=== PATIENT | female | born 1960 | race Caucasian/White ===

== ENCOUNTER 2020-01-21 10:19 | Outpatient (REF) | payer OTHER, SELFPAY ==
[2020-01-21 11:57] LABS: Hematocrit 43.2 % (37-47); Hemoglobin 13.8 g/dl (12.0-16.0); Mean Corpuscular HGB Conc 31.9 g/dl (31.0-35.0); Mean Corpuscular Hemoglobin 28.2 pg (27.0-33.0); Mean Corpuscular Volume 88.2 fL (80-98); Mean Platelet Volume 10.2 fL (9.4-12.3); Platelet Count 375 X10*3/uL (160-400); Red Cell Distribution Width 12.3 % (11.0-16.0); White Blood Count 7.3 X10*3/uL (4.8-10.8)
[2020-01-21 12:35] LABS: Alanine Aminotransferase 25 U/L (0-31); Albumin Level 4.3 g/dL (3.5-5.0); Alkaline Phosphatase 85 U/L (39-117); Anion Gap 12 (12-20); Aspartate Amino Transferase 18 U/L (5-31); Bilirubin Total 0.6 mg/dL (0.0-1.0); Blood Urea Nitrogen 15 mg/dL (9-16); Calcium 8.6 mg/dL (8.4-10.2); Carbon Dioxide 26 mmol/L (22-29); Chloride 106 mmol/L (96-108); Cholesterol 260 mg/dL; Estimated Glomerular Filt Rate > 60; Glucose Fasting 87 mg/dL (60-99); HDL Cholesterol 54 mg/dL; LDL Cholesterol Calculated 186 mg/dl; Potassium 4.4 mmol/l (3.3-5.1); Sodium 140 mmol/L (135-145); Total Protein 6.8 g/dL (6.5-8.0); Triglycerides 102 mg/dL
[2020-01-21 12:57] LABS: Uric Acid 4.7 mg/dL (2.4-5.7)
[2020-01-21 13:05] LABS: Erythrocyte Sedimentation Rate 14 MM/HR (0-20)
== END 2020-01-21 10:20 | disposition home or self-care (01) ==
LOC: HO.LAB 10:19
PROVIDERS: Visit Provider Internal Medicine
DX: M72.2 Plantar fascial fibromatosis (principal); E78.2 Mixed hyperlipidemia
CPT/HCPCS: 36415; 80053; 80061; 84550; 85027; 85652

== ENCOUNTER 2021-05-16 10:10 | Outpatient (REF) | payer OTHER, SELFPAY ==
[2021-05-16 11:16] LABS: Appearance Urine CLEAR; Color Urine YELLOW; Glucose Urine UA NEG (NEG); Leukocyte Esterase Urine NEG (NEG); Nitrite Urine NEG (NEG); Specific Gravity - Urine 1.025 (1.005-1.025); Urine Blood NEG (NEG); Urine Ketones NEG (NEG); Urine Protein NEG (NEG-TRACE)
[2021-05-16 11:17] LABS: Hematocrit 44.3 % (37.0-47.0); Hemoglobin 14.1 g/dl (12.0-16.0); Mean Corpuscular HGB Conc 31.8 g/dl (31.0-35.0); Mean Corpuscular Hemoglobin 27.8 pg (27.0-33.0); Mean Corpuscular Volume 87.4 fL (80.0-98.0); Platelet Count 357 X10*3/uL (160-400); Red Blood Count 5.07 X10*6/uL (4.20-5.50); Red Cell Distribution Width 12.8 % (11.0-16.0); White Blood Count 7.6 X10*3/uL (4.8-10.8)
[2021-05-16 12:02] LABS: TSH reflex Free T4 0.99 uIU/mL (0.32-4.0); Vitamin D 25-OH Total 58.4 ng/mL (>30)
[2021-05-16 12:07] LABS: Alanine Aminotransferase 46 U/L (0-31); Albumin Level 4.2 g/dL (3.5-5.0); Alkaline Phosphatase 83 U/L (39-117); Anion Gap 13 (12-20); Aspartate Amino Transferase 23 U/L (5-31); Bilirubin Total 0.6 mg/dL (0.0-1.0); Blood Urea Nitrogen 15 mg/dL (9-16); Calcium 9.5 mg/dL (8.4-10.2); Carbon Dioxide 27 mmol/L (22-29); Chloride 105 mmol/L (96-108); Cholesterol 266 mg/dL; Estimated Glomerular Filt Rate > 60; Glucose Fasting 90 mg/dL (60-99); HDL Cholesterol 55 mg/dL; LDL Cholesterol Calculated 188 mg/dl; Potassium 4.3 mmol/L (3.3-5.1); Sodium 141 mmol/L (135-145); Total Protein 6.8 g/dL (6.5-8.0); Triglycerides 115 mg/dL
== END 2021-05-16 10:11 | disposition home or self-care (01) ==
LOC: HO.HMGCLDS 10:10
PROVIDERS: Visit Provider Internal Medicine
DX: Z00.00 Encounter for general adult medical examination without abnormal findings (principal); E55.9 Vitamin D deficiency, unspecified; E78.5 Hyperlipidemia, unspecified; R30.0 Dysuria
CPT/HCPCS: 36415; 80053; 80061; 81003; 82306; 84443; 85027

== ENCOUNTER → 2021-08-22 08:39 | Outpatient (BNVA) | payer OTHER, SELFPAY | PROVIDERS: PCP Internal Medicine; Visit Provider Nurse Practitioner Family | DX: Z13.89 Encounter for screening for other disorder (principal) ==

== ENCOUNTER 2021-11-23 08:55 | Day surgery (SDC) | payer OTHER, SELFPAY ==
[2021-11-19 13:10] VITALS: BMI 36.1
--- NOTE | 2021-11-22 12:29 | P.CONAN_ITS ---
Documented by User: Rayna Massey NP 11/22/21 12:30 HPI - Anesthesia Eval Consult details Narrative: 61yo F for Colonoscopy [facility] Active Problems Active Problems: All Active Problems (Updated 05/15/21 @ 13:44 by Elida Archibald MD) Dysuria (Acute) Vitamin D deficiency (Acute) Hyperlipidemia (Acute) Normal pelvic exam (Acute) Mammogram declined (Acute) Annual physical exam (Acute) Past Medical History Medical History Annual physical exam Dysuria Hyperlipidemia Mammogram declined Normal pelvic exam Vitamin D deficiency Family History Family History (Updated 08/22/21 @ 08:44 by MARIANNE Barr) Sister IBS (irritable bowel syndrome) Surgical History Surgical History History of cone biopsy of uterine cervix Hx of colonoscopy Hx of hernia repair Hx of tonsillectomy Social History Social History Housing: House Patient Tobacco Use Status: Former Tobacco user Quit Date: 40 yrs ago e-Cigarette/Vaping Use: Never Used Use of substances other than those prescribed or required for medical reasons: No Are you DNR?: No Advance Directives: No Advance Directives Information Provided: Yes Current occupational status: employed Meds Allergies Allergy/AdvReac Type Severity Reaction Status Date / Time Latex, Natural Rubber Allergy Mild rash Verified 11/23/21 09:08 Home Medications Medication Instructions Recorded Confirmed Last Taken Type vitamin D3-vitamin K2 PO 11/23/21 Unknown History Exam Exam Date and Time: November 22, 2021 1229 Height,Weight and Vital Signs: Height 5 ft Weight 83.915 kg Assessment and Plan Assessment Anesthesia Assessment: Chart Reviewed Documented by User: Rachael Fofana MD 11/23/21 09:20 [facility] Past Medical History Medical History Annual physical exam Dysuria Hyperlipidemia Mammogram declined Normal pelvic exam Vitamin D deficiency Family History Family History (Updated 08/22/21 @ 08:44 by MARIANNE Barr) Sister IBS (irritable bowel syndrome) Family history of problems with anesthesia: No Surgical History Surgical History History of cone biopsy of uterine cervix Hx of colonoscopy Hx of hernia repair Hx of tonsillectomy History of Problems with Anesthesia: No Social History Social History Housing: House Patient Tobacco Use Status: Former Tobacco user Quit Date: 40 yrs ago e-Cigarette/Vaping Use: Never Used Use of substances other than those prescribed or required for medical reasons: No Are you DNR?: No Advance Directives: No Advance Directives Information Provided: Yes Current occupational status: employed Meds Allergies Allergy/AdvReac Type Severity Reaction Status Date / Time Latex, Natural Rubber Allergy Mild rash Verified 11/23/21 09:08 Home Medications Medication Instructions Recorded Confirmed Last Taken Type vitamin D3-vitamin K2 PO 11/23/21 Unknown History Exam Airway Mallampati Class: II (Cap top front) TM Dist: >3cm Neck ROM: Full Heart: rrr Lungs: cta Assessment and Plan Assessment Anesthesia Assessment: Anesthesia Plan Discussed and Chart Reviewed Final Anesthetic Review Family History of Problems with Anesthesia: No History of Problems with Anesthesia: No NPO: Yes ASA Class: II Final Preanesthetic Review: No Changes in Pt Med Stat, Meds/Allgs Chart Reviewed and Consent Obtained/Reviewed Patient Risk: Intermediate Procedure Risk: Intermediate Anesthetic Plan Anesthetic Plan: MAC: Disposition: Standard PACU
--- NOTE | 2021-11-23 09:06 | MHC.SHP ---
Pre-Procedural Eval Section A Date of Service: 11/23/21 Section B Chief Complaint: screening Relevant Family History (Specify if Yes): No Relevant Social History: None Present Medications: see Short Stay Collaborative assessment Medical History: Significant History (Dysuria Hyperlipidemia Mammogram declined Normal pelvic exam Vitamin D deficiency) History of Previous Operations: Relevant previous surgery/procedure and date(s) (History of cone biopsy of uterine cervix Hx of colonoscopy Hx of hernia repair Hx of tonsillectomy) Allergies: Allergies Allergy/AdvReac Type Severity Reaction Status Date / Time Latex, Natural Rubber Allergy Mild rash Verified 08/22/21 08:43 Review of Systems Sugical H&P ROS: Negative: Constitution, Cardiovascular, Respiratory, Neurological, Psychiatric, Hem-Onc, Allergic/Immunologic, Genitourinary, Musculoskeletal, Integumentary, Endocrine and Eyes/Ears/Nose/Throat and Yes, Specify: Gastrointestinal (dysphagia, early satiety and nausea) Exam Surgical H&P Exam: Normal: HEENT, Normal: Heart, Normal: Lungs, Normal: Extremities, Normal: Abdomen, Normal: Skin and Normal: Neurological Plan Diagnosis/Plan: Unchanged I have reviewed the history and physical and performed a pertinent physical examination on my patient. No changes have occurred unless specified. Patient will need EGD at future date due to dysphagia to solids and early satiety.
[2021-11-23 09:24] VITALS: BP 142/64; PULSE 78; RESP 15; TEMP 36.5; O2SAT 96
[2021-11-23] MEDS: Lactated Ringers 1,000 ML 100 ML IVCONT (09:25)
--- NOTE | 2021-11-23 09:56 | W.PM.OPN ---
Operative Note Operative Note Date of Service: 11/23/21 Narrative: Operative Information Procedure Description: Colonoscopy Indication: screening Anesthesia: MAC COLONOSCOPY Instrument: Olympus variable stiffness pediatric scope 190L Colonoscopy Monitoring: Vital signs and clinical assessment, continuous EKG monitoring, Pulse oximetry, Carbon Dioxide monitoring and blood pressure monitoring were done throughout the procedure. Colon withdrawal time was 12 minutes. Procedure: The patient was placed in the left lateral decubitis position and pre-procedure medications were administered. After a digital rectal examination of the ano-rectum, the video colonoscope was inserted into the rectum and advanced through the colon to the cecum/TI. The colonoscope was slowly withdrawn in a retrograde panoramic fashion and the colon mucosa was carefully examined including a retroflexed view of the rectum. Findings and interventions are described below. Procedure Difficulty: easy Findings: Terminal Ileum-normal Cecum:normal Ascending Colon: normal Transverse Colon -normal Descending Colon: 6-7 mm sessile polyp removed with cold forceps Sigmoid Colon: mild to moderate diverticulosis Rectum: Retroflexion with small internal hemorrhoids, grade I Anorectum - normal Colon preparation: [place] Bowel Preparation Scale Right colon; 3 Transverse colon: 3 Left colon; 3 (0 = Unprepared colon segment with mucosa not seen due to solid stool that cannot be cleared. 1 = Portion of mucosa of the colon segment seen, but other areas of the colon segment not well seen due to staining, residual stool and/or opaque liquid. 2 = Minor amount of residual staining, small fragments of stool and/or opaque liquid, but mucosa of colon segment seen well. 3 = Entire mucosa of colon segment seen well with no residual staining, small fragments of stool or opaque liquid) Impression and Post Procedure Diagnosis: polyp internal hemorrhoids diverticular disease Plan: High fiber diet leaflet Avoid straining at stool, epsom salts and sitz bath, anusol supps or cream Repeat Colonoscopy in 5 years due to polyp removed today or earlier if clinically indicated she will need EGD due to dysphagia, and early satiety. Above findings were reviewed with the patient and relevant handouts were provided if indicated.
[2021-11-23 10:00] VITALS: BP 93/55; PULSE 70; RESP 16; TEMP 36.7; O2SAT 95
[2021-11-23 10:15] VITALS: BP 106/63; PULSE 65; RESP 16; O2SAT 96
[2021-11-23 10:30] VITALS: BP 114/67; PULSE 59; RESP 17; TEMP 36.7; O2SAT 97
== END 2021-11-23 10:40 | disposition home or self-care (01) ==
PROVIDERS: PCP Internal Medicine; Visit Provider Internal Medicine Gastroenterology
PROC: 0DJD8ZZ Inspection of Lower Intestinal Tract, Via Natural or Artificial Opening Endoscopic (ICD-10-PCS; CPT 45378; principal; 2021-11-23 10:10)
DX: Z12.11 Encounter for screening for malignant neoplasm of colon (principal); D12.4 Benign neoplasm of descending colon; K57.30 Diverticulosis of large intestine without perforation or abscess without bleeding; R68.81 Early satiety; K64.0 First degree hemorrhoids; K76.0 Fatty (change of) liver, not elsewhere classified; E78.5 Hyperlipidemia, unspecified; E55.9 Vitamin D deficiency, unspecified; R30.0 Dysuria; R14.0 Abdominal distension (gaseous); Z91.040 Latex allergy status; Z87.891 Personal history of nicotine dependence
CPT/HCPCS: 45380; 88305

== ENCOUNTER 2022-06-19 11:05 | Day surgery (SDC) | payer OTHER, SELFPAY ==
[2022-05-01 11:05] VITALS: BMI 35.2
--- NOTE | 2022-06-18 12:55 | HO.ANESPROP2 ---
Documented by User: Rayna Massey NP 06/18/22 12:55 HPI - Anesthesia Eval Consult details Narrative: 61yo F for Upper Endoscopy s/p colo 11/2021 with MAC [facility] Active Problems Active Problems: All Active Problems (Updated 12/07/21 @ 19:47 by Charisse Mendez, [facility]) Tubular adenoma (Acute) Dysuria (Acute) Vitamin D deficiency (Acute) Hyperlipidemia (Acute) Normal pelvic exam (Acute) Mammogram declined (Acute) Annual physical exam (Acute) Past Medical History Medical History Annual physical exam Dysuria Hyperlipidemia Mammogram declined Normal pelvic exam Tubular adenoma Vitamin D deficiency Family History Family History Sister IBS (irritable bowel syndrome) Family history of problems with anesthesia: No Surgical History Surgical History History of cone biopsy of uterine cervix Hx of colonoscopy Hx of hernia repair Hx of tonsillectomy History of Problems with Anesthesia: No Social History Social History Housing: House Patient Tobacco Use Status: Former Tobacco user Quit Date: 2020 Tobacco use type: Cigarette e-Cigarette/Vaping Use: Never Used Use of substances other than those prescribed or required for medical reasons: No Have you been hit, kicked, punched, or otherwise hurt by someone within the past year? If so, by whom?: No Are you DNR?: No Advance Directives: No Advance Directives Information Provided: Yes (brochure mailed) Advance Directives on File: No Recently lost weight without trying: No Eating poorly because of decreased appetite: No Nutrition Risks: No Nutritional Risk Current occupational status: employed Meds Allergies Allergy/AdvReac Type Severity Reaction Status Date / Time Latex, Natural Rubber Allergy Mild rash Verified 12/07/21 13:12 Home Medications Medication Instructions Recorded Confirmed Last Taken Type vitamin D3-vitamin K2 1 cap PO DAILY 11/23/21 06/19/22 06/18/22 History Exam Exam Date and Time: June 18, 2022 1255 Height,Weight and Vital Signs: Height 5 ft Weight 81.647 kg Assessment and Plan Assessment Anesthesia Assessment: Chart Reviewed Final Anesthetic Review Family History of Problems with Anesthesia: No History of Problems with Anesthesia: No Documented by User: Rayray Santacruz MD 06/19/22 12:46 [facility] Past Medical History Medical History Annual physical exam Dysuria Hyperlipidemia Mammogram declined Normal pelvic exam Tubular adenoma Vitamin D deficiency Family History Family History Sister IBS (irritable bowel syndrome) Surgical History Surgical History History of cone biopsy of uterine cervix Hx of colonoscopy Hx of hernia repair Hx of tonsillectomy Social History Social History Housing: House Patient Tobacco Use Status: Former Tobacco user Quit Date: 2020 Tobacco use type: Cigarette e-Cigarette/Vaping Use: Never Used Use of substances other than those prescribed or required for medical reasons: No Have you been hit, kicked, punched, or otherwise hurt by someone within the past year? If so, by whom?: No Are you DNR?: No Advance Directives: No Advance Directives Information Provided: Yes (brochure mailed) Advance Directives on File: No Recently lost weight without trying: No Eating poorly because of decreased appetite: No Nutrition Risks: No Nutritional Risk Current occupational status: employed Meds Allergies Allergy/AdvReac Type Severity Reaction Status Date / Time Latex, Natural Rubber Allergy Mild rash Verified 12/07/21 13:12 Home Medications Medication Instructions Recorded Confirmed Last Taken Type vitamin D3-vitamin K2 1 cap PO DAILY 11/23/21 06/19/22 06/18/22 History Exam Airway Mallampati Class: I TM Dist: <=3cm Neck ROM: Full Heart: ok Lungs: ok Assessment and Plan Assessment Anesthesia Assessment: Anesthesia Plan Discussed Final Anesthetic Review NPO: Yes ASA Class: II Final Preanesthetic Review: No Changes in Pt Med Stat, Meds/Allgs Chart Reviewed, Consent Obtained/Reviewed and Anes Risks/Benef Reviewed Patient Risk: Low Procedure Risk: Intermediate Anesthetic Plan Anesthetic Plan: MAC: and Agree w/ Assess. and Plan Disposition: Standard PACU
[2022-06-19 11:11] VITALS: BMI 35.5
[2022-06-19 11:15] VITALS: BMI 35.5
[2022-06-19 11:39] VITALS: BP 122/69; PULSE 69; RESP 16; TEMP 36.9; O2SAT 97
[2022-06-19] MEDS: Lactated Ringers 1,000 ML 100 ML IVCONT (11:41)
--- NOTE | 2022-06-19 11:58 | MHC.SHP ---
Pre-Procedural Eval Section A Date of Service: 06/19/22 Section B Chief Complaint: Dysphagia, Relevant Family History (Specify if Yes): No Relevant Social History: None Present Medications: see Short Stay Collaborative assessment Medical History: Significant History (Dysuria Hyperlipidemia Mammogram declined Normal pelvic exam Tubular adenoma Vitamin D deficiency) History of Previous Operations: Relevant previous surgery/procedure and date(s) (History of cone biopsy of uterine cervix Hx of colonoscopy Hx of hernia repair Hx of tonsillectomy) Allergies: Allergies Allergy/AdvReac Type Severity Reaction Status Date / Time Latex, Natural Rubber Allergy Mild rash Verified 12/07/21 13:12 Review of Systems Sugical H&P ROS: Negative: Constitution, Cardiovascular, Respiratory, Neurological, Psychiatric, Hem-Onc, Allergic/Immunologic, Gastrointestinal, Genitourinary, Musculoskeletal, Integumentary, Endocrine and Eyes/Ears/Nose/Throat Exam Surgical H&P Exam: Normal: HEENT, Normal: Heart, Normal: Lungs, Normal: Extremities, Normal: Abdomen, Normal: Skin and Normal: Neurological Plan Diagnosis/Plan: Unchanged I have reviewed the history and physical and performed a pertinent physical examination on my patient. No changes have occurred unless specified. Time Spent With Patient Time: Total time managing care of this patient today ____ minutes.
--- NOTE | 2022-06-19 12:51 | W.PM.OPN ---
Operative Note Operative Note Date of Service: 06/19/22 Narrative: Procedure Description: EGD Indication: dysphagia Anesthesia: MAC FLEXIBLE TRANSORAL UPPER GASTROINTESTINAL ENDOSCOPY UPPER ENDOSCOPY Consent: Indications for the procedure and potential complications of bleeding, perforation, reaction to medications and missed diagnosis were discussed with the patient and informed consent was obtained. Instrument: Olympus GIF H 190 J mid size upper endoscope Monitoring: Vital signs and clinical assessment, continuous EKG monitoring, Pulse oximetry, Carbon Dioxide monitoring and blood pressure monitoring were done throughout the procedure. Procedure: The patient was placed in the left lateral decubitis position and pre-procedure medications were administered and a bite block was placed. The endoscope was inserted into the mouth and advanced under direct vision to the third part of duodenum. A careful inspection was made as the upper endoscope was withdrawn including a retroflexed examination of the proximal stomach; Findings and interventions are described below. Findings: Larynx:normal Esophagus: GE junction at 33 cm, diaphragm hiatus at 35 cm, consistent with 2 cm sliding hiatal hernia. Bogginess, erythema and congestion noted at GEJ with schatzki ring. Dilated with balloon at UES and LES to 19 mm with heme and superficial tears noted both areas. Bx taken from GEJ, distal and proximal esophagus Stomach: Patchy gastric erythema. Biopsies were obtained. Grade 2 flap valve on retroflexed examination of the cardia. Duodenum: Bulbar duodenitis -bx taken Intervention: Biopsies as noted above, balloon dilation Impression/Findings: hiatal hernia schatzki ring esophagitis esophageal strictures gastritis duodenitis PLAN: magic mouthwash prn for 1 week should consider PPI diet as tolerated today avoid excessively cold or hot foods/drinks
[2022-06-19 13:15] VITALS: BP 101/54; PULSE 75; RESP 14; TEMP 36.3; O2SAT 91
[2022-06-19] MEDS: Mag&Al/Sim/Diphenhyd/Lidocaine 10 ML ORAL.SUSP PO (13:26)
[2022-06-19] MEDS: Acetaminophen 325 MG TABLET 650 MG PO (13:29)
[2022-06-19 13:32] VITALS: BP 127/67; PULSE 72; RESP 16; O2SAT 98
[2022-06-19 13:47] VITALS: BP 131/68; PULSE 73; RESP 16; TEMP 36.3; O2SAT 96
== END 2022-06-19 14:27 | disposition home or self-care (01) ==
PROVIDERS: PCP Internal Medicine; Visit Provider Internal Medicine Gastroenterology
PROC: 0DJ08ZZ Inspection of Upper Intestinal Tract, Via Natural or Artificial Opening Endoscopic (ICD-10-PCS; CPT 43235; principal; 2022-06-19 12:40)
DX: R13.10 Dysphagia, unspecified (principal); K22.2 Esophageal obstruction; K29.50 Unspecified chronic gastritis without bleeding; K29.80 Duodenitis without bleeding; K20.80 Other esophagitis without bleeding; K44.9 Diaphragmatic hernia without obstruction or gangrene; E78.5 Hyperlipidemia, unspecified; E55.9 Vitamin D deficiency, unspecified; Z79.899 Other long term (current) drug therapy; Z91.040 Latex allergy status; Z87.891 Personal history of nicotine dependence
CPT/HCPCS: 43249; 43239; 88305; 88342; C1726; J3010

== ENCOUNTER → 2022-07-15 16:07 | Outpatient (BNVA) | payer OTHER, SELFPAY | PROVIDERS: PCP Internal Medicine; Visit Provider Nurse Practitioner Family | DX: Z13.89 Encounter for screening for other disorder (principal) ==

== ENCOUNTER 2022-10-07 15:00 | Outpatient (AMB) | payer OTHER, SELFPAY ==
[2022-10-07 15:23] VITALS: BP 114/58; PULSE 74; BMI 33.2
--- NOTE | 2022-10-07 15:23 | MHC.OFFVIS ---
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 Distal and proximal esophagus no inflammation. No H pylori found. Patient was recommended to start using PPI. We will start her on low-dose pantoprazole. Patient will try to avoid dietary triggers. We will try that for 3 months and we will stop the medication then. Patient was instructed to avoid NSAIDs. Patient was instructed not to lay done after meals. Staying upright for minimal 3 hours after meals discussed with patient. Dysphagia Patient no longer has dysphagia. Schatzki ring dilation performed successfully. Patient denies any dysphagia at this time. IBS (irritable bowel syndrome) Occasional postprandial abdominal bloating. Discussed with patient avoiding dietary triggers. Patient has low FODMAP diet recommendations at home. Patient will try MiraLax or senna tea to help her empty her bowels completely. Patient was also encouraged fluid intake and activity to promote better bowel motility. Plan Medications New pantoprazole 20 mg PO DAILY 90 tabs 0RF K21.9, R13.10 polyethylene glycol 3350 (Miralax) 17 grams PO DAILY 510 grams 2RF Discontinued omeprazole Discontinued Reason: Doctor's Order 20 mg PO DAILY 30 caps 2RF K21.9 TODAY'S VISIT Patient is here today for follow-up. Patient reports that since the last time have seen her she has been feeling better. Stopped taking pantoprazole few weeks ago. Patient states that she changed her diet and is no longer eating food that is aggravating her. Patient stopped milk products. Patient also is doing intermittent fasting with the last meal at 20:00 and 1st meal at 08:00. Patient denies any nausea or vomiting. Denies any dyspepsia, dysphagia or odynophagia. Patient last almost 15 lb. Patient states that she has been doing well otherwise denies any GI concerning symptoms. [facility] Medical History Annual physical exam Dysuria Hyperlipidemia Mammogram declined Normal pelvic exam Tubular adenoma Vitamin D deficiency Surgical History History of cone biopsy of uterine cervix History of esophagogastroduodenoscopy (EGD) Hx of colonoscopy Hx of hernia repair Hx of tonsillectomy Family History Sister IBS (irritable bowel syndrome) Social History Housing: House Patient Tobacco Use Status: Former Tobacco user Quit Date: 2020 Tobacco use type: Cigarette e-Cigarette/Vaping Use: Never Used Current occupational status: employed Review of Systems Const Denies weight gain and Denies weight loss ENT Reports no additional complaints, Denies dysphagia and Denies odynophagia Card Reports no additional complaints Resp Reports no additional complaints GI Denies abdominal pain, Denies belching, Denies melena, Denies bloating, Denies change in bowel habits, Denies dysphagia, Denies excessive flatus, Denies dyspepsia, Denies heartburn, Denies diarrhea, Denies loose stools, Denies nausea, Denies odynophagia and Denies vomiting Reports no additional complaints Musc Reports no additional complaints Neuro Reports no additional complaints Psych Reports no additional complaints Endo Reports no additional complaints Physical Exam Vital Signs: Last Vital Signs Pulse 74 10/07/22 15:23 BP 114/58 L 10/07/22 15:23 BMI result Body Mass Index 33.2 Const General: healthy appearing, no acute distress and well developed Nutritional Appearance: obese Orientation/consciousness: patient oriented x3 HEENT Head: Yes normal to inspection, Yes normocephalic and Yes atraumatic Face and sinus: Yes normal facial exam Mouth: Normal oral and palatal mucosa present Throat: Yes posterior oropharynx normal, Yes tonsils normal and Yes uvula midline Eyes General: appearance normal, both eyes and all related structures Neck Neck: Yes normal visual inspection, Yes full ROM and Yes trachea midline Thyroid: Thyroid normal Resp Effort & Inspection: normal respiratory effort, able to speak in complete sentences, no tracheal deviation and symmetric chest movement Auscultation: clear to auscultation bilaterally Cardio Rate: regular rate Heart sounds: S1 normal heart sound present and S2 normal heart sound present GI Inspection: Yes normal to inspection, No distended and Yes obesity Palpation (GI): Soft to palpation, not firm, nontender and No hepatosplenomegaly present Auscultation: normal bowel sounds General: Yes no CVA tenderness Back/Spine/Pelvis Back: no CVA tenderness Skin General skin exam: elasticity normal, turgor normal and dry skin Neuro General: patient oriented x3 Psych Appearance: grossly normal Mental Status: mental status grossly normal Speech and movement: Normal speech and movement present Affect: normal affect Assessment & Plan Assessment & Plan (1) GERD (gastroesophageal reflux disease): Code(s): K21.9 - Gastro-esophageal reflux disease without esophagitis Qualifiers: Esophagitis presence: with esophagitis Esophagitis bleeding: without hemorrhage Qualified Code(s): K21.00 - Gastro-esophageal reflux disease with esophagitis, without bleeding Plan: Continue avoiding dietary triggers and late night snacking. Staying upright for minimal 3 hours after meals discussed with patient. (2) Dysphagia: Code(s): R13.10 - Dysphagia, unspecified Qualifiers: Dysphagia type: unspecified Qualified Code(s): R13.10 - Dysphagia, unspecified Plan: Patient no longer has dysphagia (3) IBS (irritable bowel syndrome): Code(s): K58.9 - Irritable bowel syndrome without diarrhea Qualifiers: Irritable bowel syndrome type: without diarrhea Qualified Code(s): K58.9 - Irritable bowel syndrome without diarrhea Plan: Continue low FODMAP diet. Patient will follow-up on as needed basis. Patient is agreeable to plan of care and verbalizes understanding of instructions. She was given the opportunity to ask questions and all questions answered. Thank you for allowing me to participate in her care Coding Level of Care Code Est Pt Level 3 (06272) Diagnoses GERD (gastroesophageal reflux disease) K21.00 Esophagitis presence: with esophagitis Esophagitis bleeding: without hemorrhage Dysphagia R13.10 Dysphagia type: unspecified IBS (irritable bowel syndrome) K58.9 Irritable bowel syndrome type: without diarrhea Time Spent (min) 25 Comment 15 minutes spent with patient and additional 10 minutes spent reviewing her records
== END 2022-10-07 16:36 | disposition home or self-care (01) ==
PROVIDERS: PCP Internal Medicine; Visit Provider Nurse Practitioner Family
DX: K21.00 Gastro-esophageal reflux disease with esophagitis, without bleeding (principal); R13.10 Dysphagia, unspecified; K58.9 Irritable bowel syndrome, unspecified
CPT/HCPCS: 99213

== ENCOUNTER → 2022-10-07 15:00 | Outpatient (BNVA) | payer OTHER, SELFPAY | PROVIDERS: PCP Internal Medicine; Visit Provider Nurse Practitioner Family ==

== ENCOUNTER 2022-12-04 10:58 | Outpatient (AMB) | payer OTHER, SELFPAY ==
[2022-12-04 11:10] VITALS: BP 120/70; PULSE 66; O2SAT 97; BMI 33.2
--- NOTE | 2022-12-04 11:10 | MHC.PC.OV ---
Vital Signs 12/04/22 11:10 Height 5 ft Weight 170 lb BMI 33.2 BP 120/70 Blood Pressure Location Lt brachial Position Sitting Pulse 66 Pulse Source Pulse Oximeter Pulse Oximetry (%) 97 Oxygen Delivery Method Room Air Intake Visit Reasons: Joint pain, ?gout Intake Note: Pt is here today for a sick visit. Pt c/o gout attack. Pt c/o pain in her joints. Allergies Latex, Natural Rubber Allergy (Mild, Verified 12/04/22 11:12) rash Medication List - Last Reconciled 12/04/22 by Elida Archibald MD polyethylene glycol 3350 (Miralax) 17 grams PO DAILY [vitamin D3-vitamin K2 1 cap PO DAILY] Tobacco use date assessed: 12/04/22 Dental Screening Dental Screen Date: 12/04/22 Did you have a dental visit in the last 12 months?: Yes Did you have a dental problem in the last 6 months where you did not have access to dental care?: No Was dental information given to patient?: Patient has dentist HPI Joint pain, ?gout HPI Details Pt presents c/o L shoulder pain and L hip for 1 week last month. She denies any joint swelling or redness or injury. Pt took Advil for 2 weeks and symptoms resolved. She has not been physically active and is planning to start exercising. [facility] Medical History Tubular adenoma Dysuria Vitamin D deficiency Hyperlipidemia Normal pelvic exam Mammogram declined Annual physical exam Surgical History History of esophagogastroduodenoscopy (EGD) History of cone biopsy of uterine cervix Hx of tonsillectomy Hx of hernia repair Hx of colonoscopy Family History Sister IBS (irritable bowel syndrome) Mother Substance use disorder Father Mental health disorder Social History Housing: House Patient Tobacco Use Status: Former Tobacco user Quit Date: 2020 Tobacco use type: Cigarette e-Cigarette/Vaping Use: Never Used Current occupational status: employed Cognitive needs: No Hearing needs: No Vision needs: Yes Questionnaire PHQ-9 Over the last 2 weeks, how often have you been bothered by any of the following problems? 58973 - PHQ-9 Billing: Patient declined-do not bill Source: Developed by Drs. Nael Harrell, Celena Knapp, Adeel Orozco and colleagues, with an educational james from [employer]. Thrive Questionnaire Date Thrive assessed: 12/04/22 What is your living situation today?: I choose not to answer this question Within the past 12 months, did the food you bought not last and you didn't have the money to get more?: I choose not to answer this question Within the past 12 months, did you worry whether your food would run out before you got money to buy more?: I choose not to answer this question Do you have trouble paying for medicines?: I choose not to answer this question Do you have trouble getting transportation to medical appointments?: I choose not to answer this question Do you have trouble paying your heating and electricity bill?: I choose not to answer this question Do you have trouble taking care of your child, family member or friend?: I choose not to answer this question Do you have trouble with day-to-day activities such as bathing, preparing meals, shopping, managing finances, etc.?: I choose not to answer this question Are you currently unemployed and looking for a job?: I choose not to answer this question Are you interested in more education?: I choose not to answer this question Please select the resources that you would like help with: None Currently or been in a relationship where the following occur: I choose not to answer this question GIOVANNY-7 AMB Questionnaire GIOVANNY-7 Date GIOVANNY - 7 assessed: 12/04/22 Source: Developed by Drs. Nael Harrell, Celena Knapp, Adeel Orozco and colleagues, with an educational james from [employer]. GIOVANNY-7 Assessment Billing GIOVANNY-7 Assessment Tool: pt declined-do not bill Review of Systems Const All systems reviewed & are unremarkable except as noted in HPI and below Reports no additional complaints Eyes Reports no additional complaints ENT Reports no additional complaints Card Reports no additional complaints Resp Reports no additional complaints GI Reports no additional complaints Reports no additional complaints Physical exam (Primary Care) Vital Signs: Last Vital Signs Pulse 66 12/04/22 11:10 BP 120/70 12/04/22 11:10 Pulse Ox 97 12/04/22 11:10 Oxygen Delivery Method Room Air 12/04/22 11:10 BMI result Body Mass Index 33.2 Tobacco/Smoking Status: Tobacco use Status Tobacco use date assessed 12/04/22 12/04/22 11:19 Patient Tobacco Use Status Former Tobacco user 12/04/22 11:19 Tobacco use type Cigarette 12/04/22 11:19 e-Cigarette/Vaping Use Never Used 12/04/22 11:19 Thrive Assessment: Date of Thrive Assessment Date Thrive assessed 12/04/22 12/04/22 11:32 Currently or been in a relationship where the following occur: I choose not to answer this question Const General: no acute distress HENMT Head: Yes normal to inspection Ears: hearing grossly normal bilaterally General nose exam: Normal external nose present Mouth: Normal oral and palatal mucosa present Throat: Yes posterior oropharynx normal Eyes Visual Poe: normal visual poe by confrontation Neck Neck: Yes no lymphadenopathy and Yes supple Resp Effort & Inspection: normal respiratory effort Auscultation: clear to auscultation bilaterally Cardio Rhythm: regular rhythm Heart sounds: S1 normal heart sound present and S2 normal heart sound present GI Inspection: Yes normal to inspection Palpation (GI): Soft to palpation Percussion: Yes normal to percussion Extrem Other: Bilateral full range of motion both shoulders hips and knees, no joint swelling erythema or warmth General: Yes no clubbing, cyanosis or edema Assessment and Plan Assessment & Plan (1) Hyperlipidemia: Code(s): E78.5 - Hyperlipidemia, unspecified Plan: Low-cholesterol diet increase physical activity discussed with the patient (2) Annual physical exam: Code(s): Z00.00 - Encounter for general adult medical examination without abnormal findings (3) Arthralgia: Code(s): M25.50 - Pain in unspecified joint Plan: Check uric acid level, regular physical activity including daily joint stretching discussed with the patient Orders: Orders Complete Blood Count Auto Diff Today E78.5 - Hyperlipidemia, unspecified, Z00.00 - Encounter for general adult medical examination without abnormal findings Lipid Panel Today E78.5 - Hyperlipidemia, unspecified, Z00.00 - Encounter for general adult medical examination without abnormal findings TSH reflex Free T4 Today E78.5 - Hyperlipidemia, unspecified, Z00.00 - Encounter for general adult medical examination without abnormal findings Uric Acid Today E78.5 - Hyperlipidemia, unspecified, Z00.00 - Encounter for general adult medical examination without abnormal findings Comprehensive [place]. Panel Fast Today E78.5 - Hyperlipidemia, unspecified, Z00.00 - Encounter for general adult medical examination without abnormal findings Coding Level of Care Code Est Pt Level 3 (99123) Diagnoses Hyperlipidemia E78.5 Annual physical exam Z00.00 Arthralgia M25.50
== END 2022-12-04 12:02 | disposition home or self-care (01) ==
PROVIDERS: PCP Internal Medicine; Visit Provider Internal Medicine
DX: E78.5 Hyperlipidemia, unspecified (principal); Z00.00 Encounter for general adult medical examination without abnormal findings; M25.50 Pain in unspecified joint
CPT/HCPCS: 99213

== ENCOUNTER 2023-05-07 12:41 | Outpatient (AMB) | payer OTHER, SELFPAY ==
[2023-05-07 12:56] VITALS: BP 122/70; PULSE 75; O2SAT 98; BMI 34.2
--- NOTE | 2023-05-07 12:56 | A.OFFPC_ITS ---
Vital Signs 05/07/23 12:56 Height 5 ft Weight 175 lb BMI 34.2 BP 122/70 Blood Pressure Location Lt brachial Position Sitting Pulse 75 Pulse Source Pulse Oximeter Pulse Oximetry (%) 98 Oxygen Delivery Method Room Air Intake Visit Reasons: Annual PE Intake Note: Pt is here today for PE. Allergies Latex, Natural Rubber Allergy (Mild, Verified 05/07/23 13:06) rash Medication List - Last Reconciled 05/07/23 by Elida Archibald MD coenzyme Q10 (CoQ-10) 100 mg PO DAILY polyethylene glycol 3350 (Miralax) 17 grams PO DAILY [vitamin D3-vitamin K2 1 cap PO DAILY] Tobacco use date assessed: 05/07/23 Dental Screening Dental Screen Date: 05/07/23 Did you have a dental visit in the last 12 months?: Yes Did you have a dental problem in the last 6 months where you did not have access to dental care?: No Was dental information given to patient?: Patient has dentist HPI Annual PE HPI Details Patient presents for physical PFSH Medical History (Updated 05/07/23 @ 13:43 by Elida Archibald MD) Tubular adenoma Dysuria Vitamin D deficiency Hyperlipidemia Normal pelvic exam Mammogram declined Annual physical exam Surgical History (Updated 05/07/23 @ 13:46 by Elida Archibald MD) History of esophagogastroduodenoscopy (EGD) History of cone biopsy of uterine cervix Hx of tonsillectomy Hx of hernia repair Hx of colonoscopy Family History Sister IBS (irritable bowel syndrome) Mother Substance use disorder Father Mental health disorder Social History Housing: House Patient Tobacco Use Status: Former Tobacco user Quit Date: 2020 Tobacco use type: Cigarette e-Cigarette/Vaping Use: Never Used Current occupational status: employed Cognitive needs: No Hearing needs: No Vision needs: Yes Questionnaire PHQ-9 Over the last 2 weeks, how often have you been bothered by any of the following problems? 98943 - PHQ-9 Billing: Patient declined-do not bill Source: Developed by Drs. Nael Harrell, Celena Knapp, Adeel Orozco and colleagues, with an educational james from [employer]. Thrive Questionnaire Date Thrive assessed: 05/07/23 I am a: Patient What is your living situation today?: I choose not to answer this question Within the past 12 months, did the food you bought not last and you didn't have the money to get more?: I choose not to answer this question Within the past 12 months, did you worry whether your food would run out before you got money to buy more?: I choose not to answer this question Do you have trouble paying for medicines?: I choose not to answer this question Do you have trouble getting transportation to medical appointments?: I choose not to answer this question Do you have trouble paying your heating and electricity bill?: I choose not to answer this question Do you have trouble taking care of your child, family member or friend?: I choose not to answer this question Do you have trouble with day-to-day activities such as bathing, preparing meals, shopping, managing finances, etc.?: I choose not to answer this question Are you currently unemployed and looking for a job?: I choose not to answer this question Are you interested in more education?: I choose not to answer this question Currently or been in a relationship where the following occur: I choose not to answer this question THRIVE Score: 0 AUDIT C Alcohol Use Questionnaire (AUDIT-C) 1. How often do you have a drink containing alcohol?: Never 3. How often do you have six or more drinks on one occasion?: Never Total Score: 0 GIOVANNY-7 AMB Questionnaire GIOVANNY-7 Date GIOVANNY - 7 assessed: 05/07/23 Source: Developed by Drs. Nael Harrell, Celena Knapp, Adeel Orozco and colleagues, with an educational james from [employer]. GIOVANNY-7 Assessment Billing GIOVANNY-7 Assessment Tool: pt declined-do not bill Review of Systems Const All systems reviewed & are unremarkable except as noted in HPI and below Reports no additional complaints Eyes Reports no additional complaints ENT Reports no additional complaints Card Reports no additional complaints Resp Reports no additional complaints GI Reports no additional complaints Reports no additional complaints Physical exam (Primary Care) Vital Signs: Last Vital Signs Pulse 75 05/07/23 12:56 BP 122/70 05/07/23 12:56 Pulse Ox 98 05/07/23 12:56 Oxygen Delivery Method Room Air 05/07/23 12:56 BMI result Body Mass Index 34.2 Tobacco/Smoking Status: Tobacco use Status Tobacco use date assessed 05/07/23 05/07/23 13:09 Patient Tobacco Use Status Former Tobacco user 05/07/23 12:59 Tobacco use type Cigarette 05/07/23 12:59 e-Cigarette/Vaping Use Never Used 05/07/23 12:59 Thrive Assessment: Date of Thrive Assessment Date Thrive assessed 05/07/23 05/07/23 13:10 Currently or been in a relationship where the following occur: I choose not to answer this question Const General: no acute distress HENMT Head: Yes normal to inspection Ears: hearing grossly normal bilaterally Face and sinus: Yes normal facial exam Throat: Yes posterior oropharynx normal Eyes General: appearance normal, both eyes and all related structures Neck Neck: Yes no lymphadenopathy and Yes supple Chest Breast/axilla palpation: normal palpation of the breasts and normal palpation of the axillae Resp Effort & Inspection: normal respiratory effort Auscultation: clear to auscultation bilaterally Cardio Rhythm: regular rhythm Heart sounds: S1 normal heart sound present and S2 normal heart sound present GI Inspection: Yes normal to inspection Palpation (GI): Soft to palpation Percussion: Yes normal to percussion Auscultation: normal bowel sounds Assessment and Plan Assessment & Plan (1) Annual physical exam: Code(s): Z00.00 - Encounter for general adult medical examination without abnormal findings Plan: Well-balanced diet regular physical activity discussed with the patient. She will return for fasting blood work. Mammogram and DEXA will be scheduled. She is up-to-date with colonoscopy (2) Hyperlipidemia: Comment: Patient does not know family history because she was adopted Code(s): E78.5 - Hyperlipidemia, unspecified Plan: Low-cholesterol diet regular physical activity weight loss discussed with the patient (3) Vitamin D deficiency: Code(s): E55.9 - Vitamin D deficiency, unspecified Plan: Check vitamin-D (4) Postmenopausal: Code(s): Z78.0 - Asymptomatic menopausal state (5) Hx of colonoscopy: Comment: 11/23/2021 [facility] , 1 polyp 6 mm, recheck 5 yrs Code(s): Z98.890 - Other specified postprocedural states Orders: Orders Comprehensive [place]. Panel Fast Today E55.9 - Vitamin D deficiency, unspecified, E78.5 - Hyperlipidemia, unspecified, Z00.00 - Encounter for general adult medical examination without abnormal findings, Z53.20 - Procedure and treatment not carried out because of patient's decision for unspecified reasons Complete Blood Count Auto Diff Today E55.9 - Vitamin D deficiency, unspecified, E78.5 - Hyperlipidemia, unspecified, Z00.00 - Encounter for general adult medical examination without abnormal findings, Z53.20 - Procedure and treatment not carried out because of patient's decision for unspecified reasons Lipid Panel Today E55.9 - Vitamin D deficiency, unspecified, E78.5 - Hyperlipidemia, unspecified, Z00.00 - Encounter for general adult medical examination without abnormal findings, Z53.20 - Procedure and treatment not carried out because of patient's decision for unspecified reasons UA w Microscopic Today E55.9 - Vitamin D deficiency, unspecified, E78.5 - Hyperlipidemia, unspecified, Z00.00 - Encounter for general adult medical examination without abnormal findings, Z53.20 - Procedure and treatment not carried out because of patient's decision for unspecified reasons MM screening mammo BI Today Z12.31 - Encounter for screening mammogram for malignant neoplasm of breast, Z78.0 - Asymptomatic menopausal state TSH reflex Free T4 Today E55.9 - Vitamin D deficiency, unspecified, E78.5 - Hyperlipidemia, unspecified, Z00.00 - Encounter for general adult medical examination without abnormal findings, Z53.20 - Procedure and treatment not carried out because of patient's decision for unspecified reasons Vitamin D 25-OH Total Today E55.9 - Vitamin D deficiency, unspecified, E78.5 - Hyperlipidemia, unspecified, Z00.00 - Encounter for general adult medical examination without abnormal findings, Z53.20 - Procedure and treatment not carried out because of patient's decision for unspecified reasons XR DEXA axial skeleton Today Z78.0 - Asymptomatic menopausal state Coding Level of Care Code Est Pt Prev Care 40-64y(57181) Diagnoses Annual physical exam Z00.00 Hyperlipidemia E78.5 Vitamin D deficiency E55.9 Postmenopausal Z78.0 Hx of colonoscopy Z98.890
== END 2023-05-07 13:46 | disposition home or self-care (01) ==
PROVIDERS: PCP Internal Medicine; Visit Provider Internal Medicine
DX: Z00.00 Encounter for general adult medical examination without abnormal findings (principal); E78.5 Hyperlipidemia, unspecified; E55.9 Vitamin D deficiency, unspecified; Z78.0 Asymptomatic menopausal state; Z98.890 Other specified postprocedural states
CPT/HCPCS: 99396

== ENCOUNTER 2023-06-02 09:28 | Outpatient (REF) | payer OTHER, SELFPAY ==
[2023-06-02 11:16] LABS: MANUAL DIFF FLAG NO
[2023-06-02 11:43] LABS: Basophils Percent Auto 0.3 % (0-2); Eosinophils Absolute Auto 0.1 X10*3/uL (0.0-0.4); Eosinophils Percent Auto 1.3 % (0-4); Hematocrit 41.2 % (37.0-47.0); Hemoglobin 13.6 g/dl (12.0-16.0); Imm Gran Abs Auto 0.03 X10*3/uL (0.00-0.03); Imm Gran Pct Auto 0.4 % (0.0-0.4); Lymphocytes Percent Auto 28.8 % (20-40); Mean Corpuscular Hemoglobin 28.8 pg (27.0-33.0); Mean Corpuscular Volume 87.1 fL (80.0-98.0); Mean Platelet Volume 10.5 fL (9.4-12.3); Monocytes Absolute Auto 0.5 X10*3/uL (0.1-1.2); Monocytes Percent Auto 7.2 % (2-11); Neutrophils Absolute Auto 4.2 x10*3/uL (2.0-8.3); Platelet Count 321 X10*3/uL (160-400); Red Blood Count 4.73 X10*6/uL (4.20-5.50); Red Cell Distribution Width 12.4 % (11.0-16.0); White Blood Count 6.8 X10*3/uL (4.8-10.8)
[2023-06-02 12:47] LABS: Alanine Aminotransferase 19 U/L (0-31); Albumin Level 4.2 g/dL (3.5-5.0); Alkaline Phosphatase 63 U/L (39-117); Anion Gap 11 (12-20); Aspartate Amino Transferase 17 U/L (5-31); Bilirubin Total 0.4 mg/dL (0.0-1.0); Blood Urea Nitrogen 14 mg/dL (9-16); Calcium 9.5 mg/dL (8.4-10.2); Carbon Dioxide 26 mmol/L (22-29); Chloride 109 mmol/L (96-108); Cholesterol 276 mg/dL (<200); Estimated Glomerular Filt Rate > 60; Glucose Fasting 95 mg/dL (60-99); HDL Cholesterol 58 mg/dL (>40); LDL Cholesterol Calculated 201 mg/dL (<100); Potassium 3.9 mmol/L (3.3-5.1); Sodium 142 mmol/L (135-145); Total Protein 7.1 g/dL (6.5-8.0); Triglycerides 88 mg/dL (<150)
[2023-06-02 13:06] LABS: TSH reflex Free T4 1.37 uIU/mL (0.32-4.0)
[2023-06-02 13:30] LABS: Appearance Urine Clear; Color Urine Yellow; Glucose Urine UA Negative (Negative); Leukocyte Esterase Urine Negative (Negative); Nitrite Urine Negative (Negative); PH 5.5 (5.0-9.0); Urine Blood Negative (Negative); Urine Ketones Negative (Negative); Urine Protein Negative (Neg-Trace)
[2023-06-02 13:33] LABS: Bacteria Urine None Seen (None Seen); Hyaline Casts Urine 0-2 /LPF (0-2); RBC Urine 0-2 /HPF (0-2); Squamous Epithelial Cell Urine 0-2 /HPF (0-2); WBC Urine 0-5 /HPF (0-5)
== END 2023-06-02 09:29 | disposition home or self-care (01) ==
LOC: HO.HMGCLDS 09:28
PROVIDERS: PCP Internal Medicine; Visit Provider Internal Medicine
DX: Z00.00 Encounter for general adult medical examination without abnormal findings (principal); E78.5 Hyperlipidemia, unspecified; E55.9 Vitamin D deficiency, unspecified
CPT/HCPCS: 36415; 80053; 80061; 81001; 82306; 84443; 85025

== ENCOUNTER 2023-06-04 12:46 | Outpatient (REF) | payer OTHER, SELFPAY ==
--- NOTE | ~2023-06-04 | MM_ITS ---
EXAMINATION: BONE DENSITOMETRY CLINICAL INDICATION: Asymptomatic menopausal state. COMPARISON: This is the patient's baseline examination. TECHNIQUE: Using a TCHO DXA System (software version: 13.1) manufactured by [employer], dual-energy x-ray absorptiometry was performed of the lumbar spine and left hip. The images are of good technical quality. Summary results are attached. FINDINGS: AP SPINE L1-L2 (excluding L3 and L4): The data of L1-L4 has been changed to exclude the L3 and L4 vertebral bodies, because degenerative sclerosis at these levels may cause overestimation of lumbar spine density. BMD 1.112 g/cm2, Z-score 0.4, T-score -0.4, normal. LEFT FEMUR, NECK: BMD 0.760 g/cm2, Z-score -1.0, T-score -2.0, osteopenia. LEFT FEMUR, TOTAL: BMD 0.932 g/cm2, Z-score 0.1, T-score -0.6, normal. IDENTIFIED RISK FACTORS: Menopause. HISTORY OF FRACTURE: None listed. MEDICATIONS: Calcium supplement and/or multivitamin. Vitamin D. MM/XR DEXA axial skeleton IMPRESSION: 1. DIAGNOSIS: Osteopenia based on the lowest T-score value of -2.0 in the femoral neck applying World Health Organization criteria. 2. 10-YEAR FRACTURE RISK PREDICTION, FRAX: Major osteoporotic fracture (clinical spine, forearm, hip or shoulder) 9.6%. Hip fracture 1.3%. 3. Treatment Recommendations: NOF guidelines recommend consideration for treatment in postmenopausal women and men age 50 and older presenting with the following: -A hip or vertebral (clinical or morphometric) fracture. -T-score less than or equal to -2.5 at the femoral neck or spine after appropriate evaluation to exclude secondary causes. -Low bone mass at the hip or spine and a 10-year fracture probability by FRAX of greater than or equal to 3% for hip fracture or greater than or equal to 20% for major osteoporotic fracture based on the [place] adapted WHO algorithm. 4. Other Recommendations: All treatment decisions require clinical judgment and consideration of individual patient factors, including patient preferences, comorbidities, previous drug use, risk factors not captured in the FRAX model (e.g. frailty, falls, vitamin D deficiency, increased bone turnover, interval significant decline in bone density) and possible under or overestimation of fracture risk by FRAX. Additional medical evaluation for secondary cause of low bone mineral density may be appropriate. FUTURE SCAN RECOMMENDATION: People with diagnosed cases of osteoporosis or at high risk for fracture should have regular bone mineral density tests. For patients eligible for Medicare, routine testing is allowed once every 2 years. The testing frequency can be increased to one year for patients who have rapidly progressing disease, those who are receiving or discontinuing medical therapy to restore bone mass, or have additional risk factors.
--- NOTE | ~2023-06-04 | MM_ITS ---
EXAMINATION: MM SCREENING DIGITAL BREAST TOMOSYNTHESIS, BILATERAL CLINICAL INFORMATION: Screening. Asymptomatic. COMPARISON: Mammography: This study is compared with prior exams dating back to 2013. TECHNIQUE: Digital breast tomosynthesis is performed in both the craniocaudal and mediolateral oblique views along with computer-aided detection (CAD). Synthesized 2D images are generated from the tomosynthesis. FINDINGS: The breasts are heterogeneously dense, which may obscure small masses (ACR BI-RADS breast composition Category c). There are no significant masses, abnormal calcifications, or other abnormalities. MM/MM tomosynthesis screening BI IMPRESSION: No mammographic evidence of malignancy. ASSESSMENT: BI-RADS BI-RADS 1 - Negative RECOMMENDATION: Routine annual mammography screening. 1 year F/U This examination should not preclude the clinical evaluation of a suspicious palpable abnormality. This patient's information was entered into a reminder system with a target due date for their next mammogram.
== END 2023-06-04 12:47 | disposition home or self-care (01) ==
LOC: HO.MAMMO 12:46
PROVIDERS: PCP Internal Medicine; Visit Provider Internal Medicine
DX: Z12.31 Encounter for screening mammogram for malignant neoplasm of breast (principal); Z13.820 Encounter for screening for osteoporosis; Z78.0 Asymptomatic menopausal state
CPT/HCPCS: 77063; 77067; 77080

== ENCOUNTER → 2023-06-04 12:50 | Outpatient (BNV) | payer OTHER, SELFPAY | PROVIDERS: PCP Internal Medicine; Visit Provider Radiology Diagnostic Radiology | DX: Z12.31 Encounter for screening mammogram for malignant neoplasm of breast (principal) | CPT/HCPCS: 77063; 77067 ==

== ENCOUNTER 2024-02-05 11:48 | Outpatient (AMB) | payer OTHER, SELFPAY ==
--- NOTE | 2024-02-05 11:50 | A.OFFPC_ITS ---
Vital Signs 02/05/24 11:51 Height 5 ft Weight 177 lb BMI 34.6 BP 126/76 Blood Pressure Location Lt brachial Position Sitting Pulse 72 Pulse Source Pulse Oximeter Pulse Oximetry (%) 97 Oxygen Delivery Method Room Air Intake Visit Reasons: Menopause , and ear problems Intake Note: Pt is here today for a sick visit. Pt c/o itchy growth behind her L ear. Pt also had a pink vaginal discharge she has not seen a CHECKER/STOCKER few years ago. Allergies Latex, Natural Rubber Allergy (Mild, Verified 02/05/24 11:55) rash Medication List - Last Reconciled 02/05/24 by Elida Archibald MD coenzyme Q10 (CoQ-10) 100 mg PO DAILY polyethylene glycol 3350 (Miralax) 17 grams PO DAILY [vitamin D3-vitamin K2 1 cap PO DAILY] Tobacco use date assessed: 02/05/24 Dental Screening Dental Screen Date: 02/05/24 Did you have a dental visit in the last 12 months?: Yes Did you have a dental problem in the last 6 months where you did not have access to dental care?: No Was dental information given to patient?: Patient has dentist HPI Menopause , and ear problems HPI Details Patient presents for follow-up. She has been follow low-cholesterol diet for hyperlipidemia. 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 She noticed some pink vaginal discharge 3 days ago. She denies abdominal or pelvic pain or obvious vaginal bleeding. She has a history of uterine fibroids and used to be monitored by her supervisor forming and tempering with pelvic ultrasound. Patient denies abnormal Pap smear in the past. [facility] Medical History Tubular adenoma Dysuria Vitamin D deficiency Hyperlipidemia Normal pelvic exam Mammogram declined Annual physical exam Surgical History History of esophagogastroduodenoscopy (EGD) History of cone biopsy of uterine cervix Hx of tonsillectomy Hx of hernia repair Hx of colonoscopy Family History Sister IBS (irritable bowel syndrome) Mother Substance use disorder Father Mental health disorder Social History Housing: House Patient Tobacco Use Status: Former Tobacco user Tobacco use type: Cigarette e-Cigarette/Vaping Use: Never Used service: No Current occupational status: employed Cognitive needs: No Hearing needs: No Vision needs: Yes Questionnaire PHQ-9 Over the last 2 weeks, how often have you been bothered by any of the following problems? 1. Little interest or pleasure in doing things: not at all 2. Feeling down, depressed, or hopeless: not at all 3. Trouble falling or staying asleep, or sleeping too much: not at all 4. Feeling tired or having little energy: several days 5. Poor appetite or overeating: not at all 6. Feeling bad about yourself - or that you are a failure or have let yourself or your family down: not at all 7. Trouble concentrating on things, such as reading the newspaper or watching television: not at all 8. Moving or speaking so slowly that other people could have noticed. Or the opposite - being so fidgety or restless that you have been moving around a lot more than usual: not at all 9. Thoughts that you would be better off or of hurting yourself in some w ay: not at all Total score: 1 Depression Screening Interpretation: Negative Depression Screening Done: Yes 66987 - PHQ-9 Billing: Yes Source: Developed by Drs. Nael Harrell, Celena Knapp, Adeel Orozco and colleagues, with an educational james from [employer]. Thrive Questionnaire Date Thrive assessed: 02/05/24 I am a: Patient What is your living situation today?: I have a steady place to live Within the past 12 months, did the food you bought not last and you didn't have the money to get more?: Never true Within the past 12 months, did you worry whether your food would run out before you got money to buy more?: Never true Do you have trouble paying for medicines?: No Do you have trouble getting transportation to medical appointments?: No Do you have trouble paying your heating and electricity bill?: No Do you have trouble taking care of your child, family member or friend?: No Do you have trouble with day-to-day activities such as bathing, preparing meals, shopping, managing finances, etc.?: No Are you currently unemployed and looking for a job?: No Are you interested in more education?: No Please select the resources that you would like help with: None Currently or been in a relationship where the following occur: No concerns reported THRIVE Score: 0 AUDIT C Alcohol Use Questionnaire (AUDIT-C) 1. How often do you have a drink containing alcohol?: Monthly or less 2. How many drinks containing alcohol do you have on a typical day when you are drinking?: 1 or 2 3. How often do you have six or more drinks on one occasion?: Never Total Score: 1 GIOVANNY-7 AMB Questionnaire GIOVANNY-7 Date GIOVANNY - 7 assessed: 02/05/24 Feeling nervous, anxious, or on edge: 0 = Not at all Not being able to stop or control worryin = Not at all Worrying too much about different things: 0 = Not at all Trouble relaxin = Not at all Being so restless that it is hard to sit still: 0 = Not at all Becoming easily annoyed or irritable: 0 = Not at all Feeling afraid as if something awful might happen: 0 = Not at all Total GIOVANNY-7 score (0-4 normal; 5-9 mild; 10-14 moderate; 15-21 severe): 0 Source: Developed by Drs. Nael Harrell, Celena Knapp, Adeel Orozco and colleagues, with an educational james from [employer]. GIOVANNY-7 Assessment Billing GIOVANNY-7 Assessment Tool: GIOVANNY-7 Assessment 45337 Review of Systems Const All systems reviewed & are unremarkable except as noted in HPI and below Card Reports no additional complaints Resp Reports no additional complaints GI Reports no additional complaints Reports no additional complaints Physical exam (Primary Care) Vital Signs: Last Vital Signs Pulse 72 02/05/24 11:51 BP 126/76 02/05/24 11:51 Pulse Ox 97 02/05/24 11:51 Oxygen Delivery Method Room Air 02/05/24 11:51 BMI result Body Mass Index 34.6 Tobacco/Smoking Status: Tobacco use Status Tobacco use date assessed 02/05/24 02/05/24 11:56 Patient Tobacco Use Status Former Tobacco user 02/05/24 11:51 Tobacco use type Cigarette 02/05/24 11:51 e-Cigarette/Vaping Use Never Used 02/05/24 11:51 PHQ-9: PHQ-9 Score PHQ-9: Total score 1 02/05/24 12:17 Depression Screening Interpretation: Negative Thrive Assessment: Date of Thrive Assessment Date Thrive assessed 02/05/24 02/05/24 11:57 Currently or been in a relationship where the following occur: No concerns reported Const General: no acute distress Neck Neck: Yes supple Resp Effort & Inspection: normal respiratory effort Auscultation: clear to auscultation bilaterally Cardio Rhythm: regular rhythm Heart sounds: S1 normal heart sound present and S2 normal heart sound present GI Inspection: Yes normal to inspection Palpation (GI): Soft to palpation Percussion: Yes normal to percussion Auscultation: normal bowel sounds External Female Exam: erythema Speculum Exam - Vagina: vagina atrophic Speculum Exam - Cervix: normal appearance of the cervix Bimanual exam- vagina & uterus: normal bimanual exam Coding Level of Care Code Est Pt Level 4 (31583) Diagnoses Hyperlipidemia E78.5 Fibroids D21.9 Vaginal discharge N89.8 Additional Codes GIOVANNY-7 Assessment Billing - GIOVANNY-7 Assessment Tool: GIOVANNY-7 Assessment 13260 ([id number]) PHQ-9 - 52508 - PHQ-9 Billing: Yes ([id number]) Assessment & Plan Assessment & Plan (1) Hyperlipidemia: Comment: Patient does not know family history because she was adopted, patient is reluctant to take statins Code(s): E78.5 - Hyperlipidemia, unspecified Category: Medical Plan: Low-cholesterol diet regular physical activity weight loss discussed with the patient. She will have a fasting blood work today. Treatment discussed with the patient. She is reluctant to start statins but is planning on researching the information (2) Fibroids: Code(s): D21.9 - Benign neoplasm of connective and other soft tissue, unspecified Category: Medical Plan: Obtain pelvic ultrasound and Pap smear was done today (3) Vaginal discharge: Code(s): N89.8 - Other specified noninflammatory disorders of vagina Category: Medical Plan: Check BV panel Orders: Orders Lipid Panel Today E78.5 - Hyperlipidemia, unspecified Comprehensive [place]. Panel Fast Today E78.5 - Hyperlipidemia, unspecified Pap Smear Today Z00.00 - Encounter for general adult medical examination without abnormal findings Bacterial Vaginosis Panel Today N89.8 - Other specified noninflammatory disorders of vagina US pelvic and transvaginal Today D21.9 - Benign neoplasm of connective and other soft tissue, unspecified Medications: New pimecrolimus 1% (Elidel) 1 appl topical BID 30 grams 0RF
[2024-02-05 11:51] VITALS: BP 126/76; PULSE 72; O2SAT 97; BMI 34.6
== END 2024-02-05 13:26 | disposition home or self-care (01) ==
PROVIDERS: PCP Internal Medicine; Visit Provider Internal Medicine
DX: E78.5 Hyperlipidemia, unspecified (principal); D21.9 Benign neoplasm of connective and other soft tissue, unspecified; N89.8 Other specified noninflammatory disorders of vagina

== ENCOUNTER 2024-02-05 11:48 | Outpatient (REF) | payer OTHER, SELFPAY ==
[2024-02-05 18:26] LABS: Alanine Aminotransferase 24 U/L (0-31); Albumin Level 4.3 g/dL (3.5-5.0); Alkaline Phosphatase 71 U/L (39-117); Anion Gap 13 (12-20); Aspartate Amino Transferase 22 U/L (5-31); Bilirubin Total 0.6 mg/dL (0.0-1.0); Blood Urea Nitrogen 14 mg/dL (9-16); Calcium 9.6 mg/dL (8.4-10.2); Carbon Dioxide 27 mmol/L (22-29); Chloride 104 mmol/L (96-108); Cholesterol 264 mg/dL (<200); Estimated Glomerular Filt Rate > 60; Glucose Fasting 88 mg/dL (60-99); HDL Cholesterol 54 mg/dL (>40); LDL Cholesterol Calculated 181 mg/dL (<100); Sodium 140 mmol/L (135-145); Total Protein 7.3 g/dL (6.5-8.0); Triglycerides 145 mg/dL (<150)
== END 2024-02-05 11:49 | disposition home or self-care (01) ==
LOC: HO.HMGCLDS 11:48
PROVIDERS: PCP Internal Medicine; Visit Provider Internal Medicine
DX: E78.5 Hyperlipidemia, unspecified (principal); D21.9 Benign neoplasm of connective and other soft tissue, unspecified; N89.8 Other specified noninflammatory disorders of vagina
CPT/HCPCS: 36415; 80053; 80061; 96127

== ENCOUNTER 2024-02-05 12:53 | Outpatient (REF) | payer OTHER, SELFPAY ==
[2024-02-06 10:30] LABS: HPV 16,18/45 See PAP report
== END 2024-02-05 12:54 | disposition home or self-care (01) ==
LOC: HO.LNP 12:53
PROVIDERS: Visit Provider Internal Medicine
DX: Z00.00 Encounter for general adult medical examination without abnormal findings (principal)
CPT/HCPCS: 87624; 88175

== ENCOUNTER 2024-02-05 12:53 | Outpatient (REF) | payer OTHER, SELFPAY ==
[2024-02-05 18:13] LABS: Bacterial Vaginosis PCR NEGATIVE (Negative); Candida Group PCR NOT DETECTED (Not Detect); Candida glab krusei PCR NOT DETECTED (Not Detect); Trichomonas vaginalis PCR NOT DETECTED (Not Detect)
== END 2024-02-05 12:54 | disposition home or self-care (01) ==
LOC: HO.LAB 12:53
PROVIDERS: Visit Provider Internal Medicine
DX: Z00.00 Encounter for general adult medical examination without abnormal findings (principal); N89.8 Other specified noninflammatory disorders of vagina
CPT/HCPCS: 0352U

== ENCOUNTER 2024-02-23 12:38 | Outpatient (REF) | payer OTHER, SELFPAY ==
--- NOTE | ~2024-02-23 | US_ITS ---
EXAMINATION: US PELVIS CLINICAL INFORMATION: Leiomyoma, postmenopausal, cervical cone biopsy, vaginal bleeding. COMPARISON: None available. TECHNIQUE: Ultrasound of the pelvis is performed using both transabdominal and transvaginal transducers along with Doppler. Transvaginal imaging is performed due to inadequate visualization transabdominally. FINDINGS: Uterus is retroverted and measures 6.2 x 3.5 x 4.9 cm. A 1.8 x 1.4 x 1.7 cm echogenic lesion along the left portion of the uterus with central 1.0 x 0.8 x 1.0 cm complex cystic component of uncertain etiology, possibly an atypical fibroid versus other complex lesion. Endometrium appears abnormal for this postmenopausal patient with thickness 8 mm. The endometrium appears echogenic with small cystic components. Gynecologic consultation recommended to determine further management including possible biopsy. No significant free fluid. Nabothian cysts in the cervix. RIGHT ovary measures 2.3 x 1.2 x 1.2 cm, volume 1.7 mL. Multiple tiny echogenic foci within the right ovary are characteristic of small calcifications. Left ovary measures 2.4 x 1.5 x 1.5 cm, volume 2.76 mL. A 1.2 x 1.0 x 1.1 cm left ovarian cyst, with a few low-level internal echoes. Limited visualization due to bowel gas. US/US pelvic and transvaginal IMPRESSION: 1. Endometrium appears abnormal for this postmenopausal patient with thickness 8 mm. The endometrium appears echogenic with small cystic components. Gynecologic consultation recommended to determine further management including possible biopsy. 2. A 1.8 x 1.4 x 1.7 cm echogenic lesion along the left portion of the uterus with central 1.0 x 0.8 x 1.0 cm complex cystic component of uncertain etiology, possibly an atypical fibroid versus other complex lesion. This study was presented to [place] on March 23, 2024 for interpretation. PSA staff will provide results to referring provider at this time. Electronically signed by: Martita Lima MD 03/23/2024 09:33 AM [facility] [place]
== END 2024-02-23 12:39 | disposition home or self-care (01) ==
LOC: HO.HMGCX 12:38
PROVIDERS: PCP Internal Medicine; Visit Provider Internal Medicine
DX: D21.9 Benign neoplasm of connective and other soft tissue, unspecified (principal)
CPT/HCPCS: 76830; 76856

== ENCOUNTER 2024-03-13 11:20 | Emergency (ER) | payer OTHER, SELFPAY ==
[2024-03-13 11:39] VITALS: BP 151/58; PULSE 77; RESP 18; TEMP 36.5; O2SAT 98; BMI 35.2
--- NOTE | 2024-03-13 11:40 | ED_ITS ---
HPI - Dental/Oral General Chief complaint: Dental/Oral Stated complaint: dental pain Time Seen by Provider: 03/13/24 11:45 Source: patient, RN notes reviewed and old records reviewed Mode of arrival: ambulatory History of Present Illness ED Provider: Melissa Pimentel PA-C HPI Narrative: 63-year-old female with past medical history HLD, fibroids, presenting to the ED complaining of acute on chronic left upper tooth pain x few days. States is scheduled for tooth extraction on April 07 however pain is too severe. Has been taking ibuprofen with some relief. Admits called her PCP and was prescribed Augmentin, has taken 2 days' worth without relief. Denies fever, chills, drainage from area, facial swelling, erythema Related Data Home Medications ?Medication ?Instructions ?Recorded ?Confirmed vitamin D3-vitamin K2 1 cap PO DAILY 11/23/21 02/05/24 coenzyme Q10 100 mg capsule 100 mg PO DAILY 05/07/23 02/05/24 (CoQ-10) Previous Rx's ?Medication ?Instructions ?Recorded polyethylene glycol 3350 17 17 g PO DAILY #510 grams 07/15/22 gram/dose oral powder (Miralax) pimecrolimus 1 % topical cream 1 appl topical BID #30 grams 02/05/24 (Elidel) amoxicillin 875 mg-potassium 1 tab PO BID #42 tabs 03/12/24 clavulanate 125 mg tablet hydrocodone 5 mg-acetaminophen 325 1 tab PO Q8H PRN pain, severe 3 03/13/24 mg tablet days #9 tabs Allergies Allergy/AdvReac Type Severity Reaction Status Date / Time Latex, Natural Rubber Allergy Mild rash Verified 03/13/24 11:41 Review of Systems Review of Systems: Yes all other systems are reviewed and are negative Constitutional: Constitutional: Reports as per HPI [facility] Past Medical History Attestation statement: The following information was validated with the patient. Source: old records reviewed Medical History Tubular adenoma Dysuria Vitamin D deficiency Hyperlipidemia Normal pelvic exam Mammogram declined Annual physical exam Surgical History History of esophagogastroduodenoscopy (EGD) History of cone biopsy of uterine cervix Hx of tonsillectomy Hx of hernia repair Hx of colonoscopy Family History Family History Sister IBS (irritable bowel syndrome) Mother Substance use disorder Father Mental health disorder Social History Social History Housing: House Patient Tobacco Use Status: Former Tobacco user Tobacco use type: Cigarette e-Cigarette/Vaping Use: Never Used service: No Current occupational status: employed Cognitive needs: No Hearing needs: No Vision needs: Yes Physical Exam Vital Signs: Vital Signs: Last Vital Signs Temp 97.7 F 03/13/24 11:39 Pulse 77 03/13/24 11:39 Resp 18 03/13/24 11:39 BP 151/58 H 03/13/24 11:39 Pulse Ox 98 03/13/24 11:39 O2 Del Method Room Air 03/13/24 11:39 BMI result Body Mass Index 35.2 Const: General: cooperative, healthy appearing and no acute distress Orientation/consciousness: patient oriented x3 Limitations: no limitations HEENT: Other: + mild tenderness to left upper 3rd mola r. No surrounding gingival swelling, erythema, no fluctuance/induration. No drainage. Head: Yes normal to inspection and Yes atraumatic Ears: hearing grossly normal bilaterally General nose exam: Normal external nose present Face and sinus: Yes normal facial exam Mouth: no drooling Teeth and gingiva: fair dentition Throat: Yes posterior oropharynx normal, Yes uvula midline, No peritonsillar mass, No uvula laterally displaced and No uvular edema Eyes: General: appearance normal, both eyes and all related structures EOM: EOMs intact bilaterally Neck: Neck: Yes normal visual inspection, Yes full ROM, Yes no meningeal signs, Yes supple and No anterior neck swelling Resp: Effort & Inspection: normal respiratory effort, no respiratory distress and no stridor Auscultation: clear to auscultation bilaterally Cardio: Rate: regular rate Heart sounds: S1 normal heart sound present and S2 normal heart sound present GI: Inspection: Yes normal to inspection Skin: Rashes: no rashes Wounds: no wounds Neuro: General: patient oriented x3, tone normal and no meningeal signs Cranial nerves: Yes CN's II-XII intact bilaterally Gait exam (Neuro): Normal gait present Extrem: General: Yes normal to inspection Medical Decision Making Medical Decision Making MDM Narrative: 63-year-old female with past medical history HLD, fibroids, presenting to the ED complaining of acute on chronic left upper tooth pain x few days. On exam vital signs stable, NAD, nontoxic appearing, physical exam as noted above. Concern for acute on chronic dental pain. No evidence of acute infection or abscess. Patient currently on Augmentin recommended continuation of previously prescribed antibiotics. Recommended continuation of ibuprofen will add [place] to regimen. Recommended close follow-up with dentist/surgeon Please refer to course for remaining clinical decision making, interpretation of labs/imaging results, and discussions with consultants and/or family members. Results discussed with patient including worrisome signs and symptoms and strict return precautions, and when to return to the emergency department. They verbalized understanding and feel safe for discharge at this time. Differential Diagnosis Differential Diagnoses: The differential diagnosis associated with the presentation includes As above Admission/Observation Consideration of admission/observation: Escalation of care including admission/observation considered Lab Data MDM Lab Attestation statement: I reviewed the patient's lab results. Radiology Impression Discussion of test interpretation with radiology: I have reviewed the radiologist's reading. External Record Review External record reviewed: Inpatient record, Office record, Outpatient record, Prior outpatient labs, Prior outpatient radiology, Primary care record and Outside ED record Tests considered The following testing was considered but not selected: As above Prescription Management I considered prescription management with: Pain Medication and Antibiotic Chronic Conditions Patient?s care impacted by: Other Social Determinants Patient?s care significantly limited by Social Determinants of Health including: Other Social Determinant of Health Discharge Plan Discharge Clinical Impression: Pain, dental Patient Disposition: Home, Self-Care Instructions: Toothache (ED) Additional Instructions: Please call your dentist for close follow-up Continue taking previously prescribed antibiotics In addition [place] as an opiate pain medication, take only when pain is severe for the next 3 days Via aware [place] has Tylenol mixed in do not exceed 4 g in 1 day Gargle with warm saltwater Continue taking ibuprofen If pain persists or worsens, face becomes swollen, you have drainage from tooth or fever return to the ED Prescriptions: New hydrocodone-acetaminophen 5-325 mg tablet 1 tab PO Q8H PRN (Reason: pain, severe) 3 Days Qty: 9 0RF Rx Instructions: Partial Fill upon patient request. No Action amoxicillin-pot clavulanate 875-125 mg tablet 1 tab PO BID Qty: 42 0RF vitamin D3-vitamin K2 1 cap PO DAILY coenzyme Q10 [CoQ-10] 100 mg capsule 100 mg PO DAILY polyethylene glycol 3350 [Miralax] 17 gram/dose powder 17 g PO DAILY Qty: 510 2RF pimecrolimus [Elidel] 1 % cream 1 appl topical BID Qty: 30 0RF Referrals: Elida Archibald MD [Primary Care Provider] - 3 days Print Language: Kyrgyz
[2024-03-13 11:51] VITALS: BP 151/58; PULSE 77; RESP 18; TEMP 36.5; O2SAT 98
== END 2024-03-13 11:52 | disposition home or self-care (01) ==
LOC: HO.ED 11:49
PROVIDERS: Emergency Provider Emergency Medicine Emergency Medical Services; PCP Internal Medicine
DX: K08.89 Other specified disorders of teeth and supporting structures (principal); Z87.891 Personal history of nicotine dependence
CPT/HCPCS: 99282; 99283

== ENCOUNTER 2024-06-17 15:07 | Outpatient (AMB) | payer OTHER, SELFPAY ==
--- NOTE | 2024-06-17 15:09 | AM.OFFWIN_ITS ---
Intake Vital Signs 06/17/24 15:11 Weight 177 lb BP 140/82 H Blood Pressure Location Rt brachial Position Sitting Pulse 86 Pulse Source Pulse Oximeter Pulse Oximetry (%) 95 Oxygen Delivery Method Room Air Intake Visit Reasons: EP cough Intake Note: Patient here for cough that has been present for a couple of weeks now. Patient Tobacco Use Status: Former Tobacco user Allergies Latex, Natural Rubber Allergy (Mild, Verified 06/17/24 15:11) rash Do you need a note to return to daycare/school/sports/work: No HPI HPI Comments History of Present Illness Details 63 y/o female patient who presents to [facility] walk [facility] clinic with c/o Persistent chronic dry cough for 2 weeks now. Denies SOB, wheezing, Chest congestion or tightness. Denies fevers or chills. [facility] Medical History (Updated 06/17/24 @ 15:53 by Kimberly Rehman NP) Cough Tubular adenoma Dysuria Vitamin D deficiency Hyperlipidemia Normal pelvic exam Mammogram declined Annual physical exam Surgical History History of esophagogastroduodenoscopy (EGD) History of cone biopsy of uterine cervix Hx of tonsillectomy Hx of hernia repair Hx of colonoscopy Family History Sister IBS (irritable bowel syndrome) Mother Substance use disorder Father Mental health disorder Social History Housing: House Patient Tobacco Use Status: Former Tobacco user Tobacco use type: Cigarette e-Cigarette/Vaping Use: Never Used service: No Current occupational status: employed Cognitive needs: No Hearing needs: No Vision needs: Yes Review of Systems Const All systems reviewed & are unremarkable except as noted in HPI and below Physical Exam Vital Signs: Last Vital Signs Pulse 86 06/17/24 15:11 BP 140/82 H 06/17/24 15:11 Pulse Ox 95 06/17/24 15:11 Oxygen Delivery Method Room Air 06/17/24 15:11 Const General: cooperative and no acute distress Orientation/consciousness: patient oriented x3 Resp Effort & Inspection: normal respiratory effort and able to speak in complete sentences Auscultation: clear to auscultation bilaterally, no crackles, no rales, no rhonchi and no wheezes Cardio Heart sounds: S1 normal heart sound present and S2 normal heart sound present Neuro General: patient oriented x3 Assessment & Plan Assessment & Plan (1) Cough: Code(s): R05.9 - Cough, unspecified Qualifiers: Cough type: subacute Qualified Code(s): R05.2 - Subacute cough Plan: Ordered Chest Xray Ordered Benzonatate. Orders: Orders XR chest 2V Today R05.9 - Cough, unspecified Medications: New 2 benzonatate 200 mg (2 x 100 mg) PO BID 60 caps 0RF R05.2 - Subacute cough Coding Level of Care Code Est Pt Level 4 (54180) Diagnoses Subacute cough R05.2 Cough type: subacute Time Spent (min) 20
[2024-06-17 15:11] VITALS: BP 140/82; PULSE 86; O2SAT 95
--- OUTSIDE RECORDS SUMMARY | 2024-06-17 18:48 | XMS_ITS | Patient Health Record ---
[facility] Address [address] [place] [address] Care Team Providers Care [employer] Faculty Member Name Role Phone Elida Archibald MD Primary Care Provider Nuno Robbinsmie Unavailable [phone] Allergies Allergen (clinical drug ingredient) Drug/Non Drug Allergy documented on EMR Reaction Allergy Type Onset Date Status Latex Latex rash Allergy Active Reason For Referral No Information Medications Medication SIG (Take, Route, Frequency, Duration) Notes Start Date End Date Status zzzCompression Stockings 20-30mm Hg . . . for . Active Ashwagandha Active Santos Multivitamin for Women - as directed Orally Active Vitamin D3 Active Social History Tobacco Use: Social History Observation Description Date Details (start date - stop date) Former Smoker NA - NA Tobacco Use/Smoking Question Answer Notes Are you a: former smoker Additional Findings: Tobacco Non-User Current no n-smoker Alcohol Screen Question Answer Notes Did you have a drink containing alcohol in the p ast year? No Points 0 Interpretation Negative Tobacco use other than smoking: Question Answer Notes Are you an other tobacco user? No Problems No Known Problems Plan Of Treatment No Information Insurance Providers Payer Name Payer Address Payer Phone Subscriber Number Group Number Insured Name Patient Relationship to Insured Coverage Start Date Coverage End Date [facility] [address] [place] [phone] [id number] NimeshMelody Self - patient is the insured Medical (General) History Medical History History ICD Code Hyperlipidemia Arthritis Back,Hip,and Knee pain CAD (Cholesterol) Depression Reflux ( GERD) Chicken pox Warts fatty Liver Surgical History Surgery Date(Month/Year) tonsillectomy umbilical hernia repair
== END 2024-06-17 16:08 | disposition home or self-care (01) ==
PROVIDERS: PCP Internal Medicine; Visit Provider Nurse Practitioner Family
DX: R05.2 Subacute cough (principal)

== ENCOUNTER 2024-06-17 15:07 | Outpatient (REF) | payer OTHER, SELFPAY ==
--- NOTE | ~2024-06-17 | XR_ITS ---
EXAMINATION: XR CHEST CLINICAL INFORMATION: R05.9 - Cough, unspecified COMPARISON: None available. TECHNIQUE: 2 views of the chest were obtained. FINDINGS: The cardiac, hilar, and mediastinal contours are normal. The lungs are clear bilaterally. There is no pneumothorax or pleural effusion. There is no focal osseous or soft tissue abnormality. XR/XR chest 2V IMPRESSION: No active pulmonary disease. Electronically signed by: Kin Jiménez MD 06/17/2024 03:45 PM EDT
== END 2024-06-17 15:08 | disposition home or self-care (01) ==
LOC: HO.HMGCX 15:07
PROVIDERS: PCP Internal Medicine; Visit Provider Nurse Practitioner Family
DX: R05.2 Subacute cough (principal)
CPT/HCPCS: 71046

== ENCOUNTER → 2024-06-17 15:33 | Outpatient (BNV) | payer OTHER, SELFPAY | PROVIDERS: PCP Internal Medicine; Visit Provider Radiology Diagnostic Radiology | DX: R05.9 Cough, unspecified (principal) | CPT/HCPCS: 71046 ==

== ENCOUNTER 2024-10-20 15:22 | Outpatient (REF) | payer OTHER, SELFPAY | END 2024-10-20 15:23 | disposition home or self-care (01) | LOC: HO.LNP 15:22 | PROVIDERS: PCP Internal Medicine; Visit Provider Obstetrics & Gynecology | DX: N83.292 Other ovarian cyst, left side (principal); D25.9 Leiomyoma of uterus, unspecified; N95.0 Postmenopausal bleeding; R93.89 Abnormal findings on diagnostic imaging of other specified body structures; Z12.31 Encounter for screening mammogram for malignant neoplasm of breast | CPT/HCPCS: 58100; 88305; 88341; 88342; 88360 ==

== ENCOUNTER 2024-10-20 15:22 | Outpatient (AMB) | payer OTHER, SELFPAY ==
--- NOTE | 2024-10-20 15:29 | MHC.OFFVIS ---
Vital Signs 10/20/24 15:30 Height 5 ft Weight 177 lb BMI 34.6 BP 110/60 Intake Visit Reasons: abnormal ultrasound Lumber Tallier Required: No Information Interpreted: non-clinical & clinical Accompanied by: Self / Same As Patient Allergies Latex, Natural Rubber Allergy (Mild, Verified 10/20/24 15:31) rash Post menopausal: Yes HPI Comments Details: Presenting referred from PCP regarding abnormal pelvic ultrasound finding. The patient has been having pinkish discharge over the last year or so. 03/23/2024 pelvic ultrasound showed the following: Uterus is retroverted and measures 6.2 x 3.5 x 4.9 cm. A 1.8 x 1.4 x 1.7 cm echogenic lesion along the left portion of the uterus with central 1.0 x 0.8 x 1.0 cm complex cystic component of uncertain etiology, possibly an atypical fibroid versus other complex lesion. Endometrium appears abnormal for this postmenopausal patient with thickness 8 mm. The endometrium appears echogenic with small cystic components. Gynecologic consultation recommended to determine further management including possible biopsy. No significant free fluid. Nabothian cysts in the cervix. RIGHT ovary measures 2.3 x 1.2 x 1.2 cm, volume 1.7 mL. Multiple tiny echogenic foci within the right ovary are characteristic of small calcifications. Left ovary measures 2.4 x 1.5 x 1.5 cm, volume 2.76 mL. A 1.2 x 1.0 x 1.1 cm left ovarian cyst, with a few low-level internal echoes. Limited visualization due to bowel gas. Last co testing in 02/14 was negative Last screening mammogram in 06/14 was BI-RADS 1 PFSH Medical History Cough Tubular adenoma Dysuria Vitamin D deficiency Hyperlipidemia Normal pelvic exam Mammogram declined Annual physical exam Surgical History History of esophagogastroduodenoscopy (EGD) History of cone biopsy of uterine cervix Hx of tonsillectomy Hx of hernia repair Hx of colonoscopy Family History Sister IBS (irritable bowel syndrome) Mother Substance use disorder Father Mental health disorder Social History (Updated 10/20/24 @ 15:33 by Jennifer Valverde CMA) Household Members Other:: son Housing: House Alcohol intake: current Alcohol intake frequency: holidays/special occasions only Patient Tobacco Use Status: Former Tobacco user Tobacco use type: Cigarette e-Cigarette/Vaping Use: Never Used service: No Current occupational status: employed 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 [employer] Sexual orientation: Straight/Heterosexual Gender identity: Female Cognitive needs: No Hearing needs: No Vision needs: Yes Female Reproductive History Menstrual Total pregnancies: 3 Full term: 2 Number of Living Children: 2 Ab induced: 1 Date of last pap smear: 02/06/24 Date of Mammogram: 06/04/23 Review of Systems Const All systems reviewed & are unremarkable except as noted in HPI and below Card Reports as per HPI Resp Reports as per HPI GI Reports as per HPI and Reports no additional complaints Reports as per HPI Physical Exam Vital Signs: Last Vital Signs BP 110/60 10/20/24 15:30 BMI result Body Mass Index 34.6 Const General: cooperative, healthy appearing and comfortable Chest Chest palpation & inspection: normal inspection of the chest and normal palpation of entire chest wall Breast/axilla inspection: normal inspection of the breasts and normal inspection of the axillae Breast/axilla palpation: normal palpation of the breasts, normal palpation of the axillae and no axillary lymphadenopathy GI Inspection: Yes normal to inspection Palpation (GI): Soft to palpation, nontender, no guarding, not rigid and No hepatosplenomegaly present Percussion: Yes normal to percussion Auscultation: normal bowel sounds Rectal Exam - Female: deferred General: Yes bladder normal to palpation External Female Exam: No lesion Speculum Exam - Vagina: normal appearance of the vagina, normal palpation, normal vaginal discharge and not erythematous Speculum Exam - Cervix: normal appearance of the cervix and normal palpation Bimanual exam- vagina & uterus: normal bimanual exam, normal palpation, uterine size normal, bladder normal to palpation, consistency normal and normal palpation Bimanual Exam- Adnexa, other: normal adnexae, no masses and no tenderness Office Procedures Endometrial Biopsy Details: The patient was counseled regarding the indication and benefits of endometrial sampling to rule out endometrial pathology including not limited to endometrial hyperplasia or endometrial cancer and others; The alternatives (Either do nothing vs. hysteroscopy D&C) & the risks were discussed with the patient including but not limited: pain, uterine perforation, bleeding, infection, possible injury to bladder, bowel, ureter, possible need for blood transfusion with all its possible risks. The patient verbalized understanding all questions answered and signed consent. The patient was placed into the dorsal lithotomy position; a speculum was inserted in the vagina. Using aseptic technique for the procedure, the cervix was cleansed with Betadine. The anterior lip of the cervix was grasped with a single tooth tenaculum. The uterus was sounded to 7 cm with a 4 mm Pipelle was used. Tissues samples were obtained and placed in formalin, in a patient labeled container and sent to the pathology department. At the end of the procedure, there was minimal bleeding noted The patient tolerated the procedure well and was discharged in good condition with the following instructions: Nothing in the vagina until the bleeding stops. No sex until the bleeding stops, to call if any of the following occurs: fever (>100.4), flu-like symptoms, abdominal pain, heavy bleeding, four smelling vaginal discharge. The patient was instructed to schedule a Follow up appointment in 2 weeks to discuss pathology results of the biopsy and treatment options. This note was generated with a voice recognition program. Some errors may have been overlooked during the review of this note. Sometimes these errors may affect the content or meaning of a given sentence. [id number] Biopsy Assessment & Plan Assessment & Plan (1) Complex ovarian cyst: Code(s): N83.299 - Other ovarian cyst, unspecified side Category: Medical Plan: Screening mammogram ordered. Discussed with the patient the finding of a left complex ovarian cyst on ultrasound in 03/16 will repeat a pelvic ultrasound within 2 weeks. Instructions given the patient to schedule an ultrasound within 1-2 weeks and a follow-up appointment. (2) Uterine myoma: Code(s): D25.9 - Leiomyoma of uterus, unspecified Category: Medical Plan: Discussed with the patient the finding on ultrasound done in 03/23/2024 possible atypical myoma will order pelvic MRI. Instructions given the patient to schedule an MRI and a follow-up appointment within 2 weeks (3) Postmenopausal bleeding: Comment: Thickened abnormal endometrium Code(s): N95.0 - Postmenopausal bleeding Category: Medical Plan: Discussed with the patient the pelvic ultrasound findings, the endometrial stripe thickenss measured by ultrasound was more than 4mm. The negative predictive value, positive predictive value, Sensitivity, specificity of using ultrasound measurement of endometrial stripe to detecting endometrial pathology including hyperplasia , polyp or cancer were discussed with the patient. Recommended to the patient that the next step is an endometrial sampling via hysteroscopy D&C possible polypectomy versus endometrial biopsy to r/o endometrial pathology including hyperplasia or cancer. All the pros and cons risks and benefits of each approach were discussed with the patient, endometrial biopsy being less invasive, office procedure with less sensitivity and inability diagnose a polyp and removal versus hysteroscopy done under anesthesia more invasive more sensitive to endometrial cancer and possibility of diagnosing and endometrial polyp with the possibility of polypectomy. All questions were answered pt verbalized understanding and decided to proceed with endometrial biopsy, EMB done, see procedure note Orders: Orders MM tomosynthesis screening BI Today Z12.31 - Encounter for screening mammogram for malignant neoplasm of breast MR Prostate wo/w con Today D25.9 - Leiomyoma of uterus, unspecified, N83.299 - Other ovarian cyst, unspecified side AMB Endometrial Biopsy Today N95.0 - Postmenopausal bleeding US pelvic and transvaginal Today D25.9 - Leiomyoma of uterus, unspecified, N83.299 - Other ovarian cyst, unspecified side Coding Level of Care Code New Pt Level 3 (17786) Diagnoses Complex ovarian cyst N83.299 Uterine myoma D25.9 Postmenopausal bleeding N95.0 CPT Codes Endometrial Biopsy - CPT: 53049-Mveyoabtcsd Biopsy ([id number])
[2024-10-20 15:30] VITALS: BP 110/60; BMI 34.6
--- OUTSIDE RECORDS SUMMARY | 2024-10-20 16:02 | XMS_ITS | Patient Health Record ---
Author Organization [facility] Address [address] [facility] [place] [address] Care Team Providers Care Group Home Counselor Name Role Phone Elida Archibald MD Primary Care Provider Donavan Navarro Nany Unavailable [phone] Allergies Allergen (clinical drug ingredient) Drug/Non Drug Allergy documented on EMR Reaction Allergy Type Onset Date Status Latex Latex rash Allergy Active Reason For Referral No Information Medications Medication SIG (Take, Route, Frequency, Duration) Notes Start Date End Date Status zzzCompression Stockings 20-30mm Hg . . .; Duration: . Active Ashwagandha Active Santos Multivitamin for [...] Insured Coverage Start Date Coverage End Date [facility] [address] [place] [address] [id number] NimeshMelody Self - patient is the insured Medical (General) History Medical History History ICD Code Hyperlipidemia Arthritis Back,Hip,and Knee pain CAD (Cholesterol) Depression Reflux ( GERD) Chicken pox Warts fatty Liver Surgical History Surgery Date(Month/Year) tonsillectomy umbilical hernia repair
== END 2024-10-20 16:13 | disposition home or self-care (01) ==
LOC: HO.HWS 15:23
PROVIDERS: PCP Internal Medicine; Visit Provider Obstetrics & Gynecology
DX: N83.299 Other ovarian cyst, unspecified side (principal); D25.9 Leiomyoma of uterus, unspecified; N95.0 Postmenopausal bleeding
CPT/HCPCS: 58100; 99203

== ENCOUNTER 2024-10-22 09:30 | Outpatient (REF) | payer OTHER, SELFPAY ==
--- NOTE | ~2024-10-22 | US_ITS ---
CLINICAL HISTORY: D25.9 - Leiomyoma of uterus, unspecified US pelvis transabdominal and transvaginal with color Doppler Comparison: Prior relevant studies were not available for comparison at the time of this interpretation. Findings: Transabdominal scanning performed for overall anatomy. Transvaginal scanning performed for additional detail. LMP: Postmenopausal Retroverted uterus, diminutive in size measuring 6.6 x 3.5 x 4.7 cm. Well-defined thickened endometrium measuring 11 mm in thickness. Uterine fibroids Superior fundal echogenic measuring 1.9 x 1.4 x 1.5 cm The right ovary measures, 2.3 x 1.7 x 1.1 cm. Normal sonographic appearance right ovary. The left ovary measures, 2.3 x 2.1 x 1.3 cm. Probable hemorrhagic cyst measuring 11 x 11 x 13 mm. No adnexal masses or fluid collections. No free fluid Impression: 1. Postmenopausal uterine atrophywith thickened endometrium consider tissue sampling. 2. Echogenic fundal fibroid. 3. Probable hemorrhagic cyst left ovary. 4. Previous relevant studies were not available for comparison at this time of interpretation. Follow-up ultrasound in 6 or 12 weeks time is recommended This document has been electronically signed by: Conner Fry MD on 10/23/2024 08:44:08
--- OUTSIDE RECORDS SUMMARY | 2024-10-22 09:41 | XMS_ITS | Patient Health Record ---
Author Organization [facility] Address [address] [facility] [place] [address] Care Team Providers Care Mid Level Provider Name Role Phone Elida Archibald MD Primary Care Provider Donavan Navarro Nany Unavailable [phone] Allergies Allergen (clinical drug ingredient) Drug/Non Drug [...] Insured Coverage Start Date Coverage End Date [facility] [address] [place] [address] [id number] NimeshMelody Self - patient is the insured Medical (General) History Medical History History ICD Code Hyperlipidemia Arthritis Back,Hip,and Knee pain CAD (Cholesterol) Depression Reflux ( GERD) Chicken pox Warts fatty Liver Surgical History Surgery Date(Month/Year) tonsillectomy umbilical hernia repair
== END 2024-10-22 09:31 | disposition home or self-care (01) ==
LOC: HO.US 09:30
PROVIDERS: PCP Internal Medicine; Visit Provider Obstetrics & Gynecology
DX: D25.9 Leiomyoma of uterus, unspecified (principal); N83.299 Other ovarian cyst, unspecified side
CPT/HCPCS: 76830; 76856

== ENCOUNTER → 2024-10-22 09:32 | Outpatient (BNV) | payer OTHER, SELFPAY | PROVIDERS: PCP Internal Medicine; Visit Provider Radiology Diagnostic Radiology | DX: D25.9 Leiomyoma of uterus, unspecified (principal) | CPT/HCPCS: 76830; 76856 ==

== ENCOUNTER 2024-10-26 14:35 | Outpatient (AMB) | payer OTHER, SELFPAY ==
--- NOTE | 2024-10-26 14:37 | MHC.OFFVIS ---
Intake Visit Reasons: EMB results Allergies Latex, Natural Rubber Allergy (Mild, Verified 10/20/24 15:31) rash HPI Comments Details: The patient is presenting after endometrial biopsy. The patient has no complaints, no vaginal bleeding, no feverishness chills or abdominal pain. The endometrial biopsy pathology report showed the following: Endometrium, biopsy: Endometrial adenocarcinoma, endometrioid type, FIGO grade 1. Comment: MSI studies will be addended [facility] Medical History Cough Tubular adenoma Dysuria Vitamin D deficiency Hyperlipidemia Normal pelvic exam Mammogram declined Annual physical exam Surgical History History of esophagogastroduodenoscopy (EGD) History of cone biopsy of uterine cervix Hx of tonsillectomy Hx of hernia repair Hx of colonoscopy Family History Sister IBS (irritable bowel syndrome) Mother Substance use disorder Father Mental health disorder Social History Household Members Other:: son Housing: House Alcohol intake: current Alcohol intake frequency: holidays/special occasions only Patient Tobacco Use Status: Former Tobacco user Tobacco use type: Cigarette e-Cigarette/Vaping Use: Never Used service: No Current occupational status: employed Current occupation: [employer] Sexual orientation: Straight/Heterosexual Gender identity: Female Cognitive needs: No Hearing needs: No Vision needs: Yes Review of Systems Const All systems reviewed & are unremarkable except as noted in HPI and below Reports as per HPI and Reports no additional complaints GI Reports no additional complaints Reports no additional complaints Assessment & Plan Assessment & Plan (1) Endometrial adenocarcinoma: Code(s): C54.1 - Malignant neoplasm of endometrium Category: Medical Plan: Discussed with the patient the pathology results, the recommended surgical staging procedure, and the prognosis. Referral to [facility] at [facility]. Instructed the patient to call our office back in case a referral appointment is not scheduled, missed or canceled so that we will assist on rescheduling another appointment, the patient verbalized understanding agreed with the plan. Appointment with Dr. Swanson scheduled on 11/04 at 09:00, the patient is aware Coding Level of Care Code Est Pt Level 3 (90428) Diagnoses Endometrial adenocarcinoma C54.1
== END 2024-10-26 15:11 | disposition home or self-care (01) ==
LOC: HO.HWS 14:36
PROVIDERS: PCP Internal Medicine; Visit Provider Obstetrics & Gynecology
DX: C54.1 Malignant neoplasm of endometrium (principal)
CPT/HCPCS: 99213

== ENCOUNTER 2024-10-27 15:28 | Outpatient (REF) | payer OTHER, SELFPAY ==
--- OUTSIDE RECORDS SUMMARY | 2024-10-27 15:57 | XMS_ITS | Patient Health Record ---
Author Organization [facility] Address [address] [facility] [place] [address] Care Team Providers Care Supervisor Irrigation Name Role Phone Elida Archibald MD Primary Care Provider Donavan Navarro Nany Unavailable [phone] Allergies Allergen (clinical drug ingredient) Drug/Non Drug [...] Insured Coverage Start Date Coverage End Date [facility] [address] [place] [address] [id number] NimeshMelody Self - patient is the insured Medical (General) History Medical History History ICD Code Hyperlipidemia Arthritis Back,Hip,and Knee pain CAD (Cholesterol) Depression Reflux ( GERD) Chicken pox Warts fatty Liver Surgical History Surgery Date(Month/Year) tonsillectomy umbilical hernia repair
[2024-10-27 17:49] LABS: Blood Urea Nitrogen 13 mg/dL (9-16); Estimated Glomerular Filt Rate > 60
[2024-10-28 10:38] LABS: CA-125 13 U/mL (<35)
== END 2024-10-27 15:29 | disposition home or self-care (01) ==
LOC: HO.LAB 15:28
PROVIDERS: PCP Internal Medicine; Visit Provider Obstetrics & Gynecology
DX: R93.89 Abnormal findings on diagnostic imaging of other specified body structures (principal); N83.299 Other ovarian cyst, unspecified side
CPT/HCPCS: 36415; 82105; 82565; 84520; 86301; 86304

== ENCOUNTER 2024-11-10 13:46 | Outpatient (REF) | payer OTHER, SELFPAY ==
--- NOTE | ~2024-11-10 | MR_ITS ---
CLINICAL HISTORY: N83.299 - Other ovarian cyst, unspecified side MR female pelvis with and without contrast Comparison: US/SR - US PELVIC AND TRANSVAGINAL - 10/22/24 09:44 EDT US/SR - US PELVIS TRANSABDOMINAL AND TRANSVAGINAL - 02/23/24 12:45 EST Findings: The uterus is retroflexed and normal in size, measuring 4.2 x 6.8 x 4.8 cm. There is an arcuate configuration, anatomic variant. There is a subserosal fibroid at the posterior left uterine body measuring 1.8 x 1.2 x 2.5 cm which enhances. There is a lesion at lower uterine segment anteriorly near versus within the cervix which measures 1.4 x 1.2 x 1.2 cm which enhances; enhancement is less than the myometrium, similar to the endometrium and fibroid (series 4, image 18, series 3, image 17 and series 11 image 17). The endometrium measures up to 9 mm in thickness. There is ill-defined signal abnormality within the endometrium most prominent at the left aspect of the uterine fundus (see series 4, images 13-10). This involves a region measuring up to 1.4 x 0.8 cm. On the postcontrast images there is subtle ill-defined heterogeneous enhancement (series 10 images 34 through 39 series 11, image 18). Less than 50% invasion of the myometrium. No invasion of the cervical stroma. No extra uterine extension. No bladder or rectal invasion. No pelvic or periaortic lymphadenopathy. The junctional zone is normal in thickness, measuring 0.6cm. The ovaries are normal in size without masses. There is a 1.3 cm simple cyst in the left ovary. No acute intrapelvic pathology. Small left fat containing inguinal hernia. Impression: Findings consistent with the given history of endometrial cancer. There is superficial invasion of the myometrium. 1.4 cm lesion of the lower uterine segment versus within the cervix; fibroid versus endocervical tumor protrusion. No invasion of the rectum or bladder. No lymphadenopathy. This document has been electronically signed by: Keyla Rodriguze MD on 11/12/2024 16:06:48
--- OUTSIDE RECORDS SUMMARY | 2024-11-10 14:48 | XMS_ITS | Patient Health Record ---
Author [facility] Address [address] [facility] [place] [address] Care Team Providers Care Liability Claims Examiner Name Role Phone Elida Archibald MD Primary Care Provider Donavan Navarro Nany Unavailable [phone] Allergies Allergen (clinical drug ingredient) Drug/Non Drug [...] Insured Coverage Start Date Coverage End Date [facility] [address] [place] [address] [id number] NimeshMelody Self - patient is the insured Medical (General) History Medical History History ICD Code Hyperlipidemia Arthritis Back,Hip,and Knee pain CAD (Cholesterol) Depression Reflux ( GERD) Chicken pox Warts fatty Liver Surgical History Surgery Date(Month/Year) tonsillectomy umbilical hernia repair
== END 2024-11-10 13:47 | disposition home or self-care (01) ==
LOC: HO.MRI 13:46
PROVIDERS: PCP Internal Medicine; Visit Provider Obstetrics & Gynecology
DX: N83.292 Other ovarian cyst, left side (principal); R93.89 Abnormal findings on diagnostic imaging of other specified body structures; K40.90 Unilateral inguinal hernia, without obstruction or gangrene, not specified as recurrent
CPT/HCPCS: 72197; A9585

== ENCOUNTER → 2024-11-10 13:46 | Outpatient (BNV) | payer OTHER, SELFPAY | PROVIDERS: PCP Internal Medicine; Visit Provider Radiology Diagnostic Radiology | DX: D25.2 Subserosal leiomyoma of uterus (principal) | CPT/HCPCS: 72197 ==

== ENCOUNTER 2024-12-21 12:54 | Outpatient (REF) | payer OTHER, SELFPAY ==
--- OUTSIDE RECORDS SUMMARY | 2024-12-21 14:02 | XMS_ITS | Patient Health Record ---
Author Organization [facility] Address [address] [facility] [place] [address] Care Team Providers Care Manager Field Sales Name Role Phone Elida Archibald MD Primary Care Provider Donavan Navarro Nany Unavailable [phone] Allergies Allergen (clinical drug ingredient) Drug/Non Drug [...] Insured Coverage Start Date Coverage End Date [facility] [address] [place] [address] [phone] [id number] iNmeshMelody Self - patient is the insured Medical (General) History Medical History History ICD Code Hyperlipidemia Arthritis Back,Hip,and Knee pain CAD (Cholesterol) Depression Reflux ( GERD) Chicken pox Warts fatty Liver Surgical History Surgery Date(Month/Year) tonsillectomy umbilical hernia repair
== END 2024-12-21 12:55 | disposition home or self-care (01) ==
LOC: HO.MAMMO 12:54
PROVIDERS: PCP Internal Medicine; Visit Provider Obstetrics & Gynecology
DX: Z12.31 Encounter for screening mammogram for malignant neoplasm of breast (principal)
CPT/HCPCS: 77063; 77067

== ENCOUNTER → 2024-12-21 13:00 | Outpatient (BNV) | payer OTHER, SELFPAY | PROVIDERS: PCP Internal Medicine; Visit Provider Internal Medicine | DX: Z12.31 Encounter for screening mammogram for malignant neoplasm of breast (principal) | CPT/HCPCS: 77063; 77067 ==

== ENCOUNTER 2025-03-03 10:41 | Outpatient (REF) | payer OTHER, SELFPAY ==
--- NOTE | ~2025-03-03 | XR_ITS ---
EXAMINATION: XR ABDOMEN SUPINE AND ERECT WITH CHEST (ABD ACUTE SERIES) HISTORY: R10.12 - Left upper quadrant pain COMPARISON: There are no prior studies available for comparison. FINDINGS: Supine and upright views of the abdomen are submitted. The bowel gas pattern is unremarkable, without evidence of mechanical obstruction. There is no free intraperitoneal gas. No abnormal calcifications are identified. There are no abnormal soft tissue masses. The bones are intact. XR/XR acute abdomen series IMPRESSION: Unremarkable bowel gas pattern. Electronically signed by: Nael Guthrie MD 03/03/2025 12:30 PM EST
== END 2025-03-03 10:42 | disposition home or self-care (01) ==
LOC: HO.HMGCX 10:41
PROVIDERS: PCP Internal Medicine; Visit Provider Physician Assistant Medical
DX: R10.12 Left upper quadrant pain (principal)
CPT/HCPCS: 74022

== ENCOUNTER 2025-03-03 10:41 | Outpatient (AMB) | payer OTHER, SELFPAY ==
--- NOTE | 2025-03-03 10:54 | AM.OFFWIN_ITS ---
Intake Vital Signs 03/03/25 10:55 Height 5 ft Weight 186 lb BMI 36.3 BP 138/66 Blood Pressure Location Lt brachial Position Sitting Pulse 78 Pulse Source Pulse Oximeter Temp 97.4 F Temp Source Oral Pulse Oximetry (%) 96 Oxygen Delivery Method Room Air Intake Visit Reasons: EP pain in upper left side abdomen Intake Note: pt presents with LUQ pain beginning yesterday night, certain movements causes more pain- reports constipation issues Patient Tobacco Use Status: Former Tobacco user Allergies Latex, Natural Rubber Allergy (Mild, Verified 03/03/25 11:02) rash Do you need a note to return to daycare/school/sports/work: Yes HPI HPI Comments History of Present Illness Details History of Present Illness - The patient is a 64-year-old female pr esenting with abdominal pain that started shortly before she went to work the previous night. - She believes the symptoms may have bee n triggered by eating pomegranate seeds yesterday. - The pain is described as a sharp, cram ping sensation in the upper abdomen, which is exacerbated by movement and bending, and relieved by staying still. - Associated symptoms include feeling bl oated, some burping, and feeling chills, although she denies having a fever. - She denies nausea, vomiting, diarrhea, or reflux. - She also reports left shoulder blade p ain, which she attributes to tension. - The patient has a history of constipat ion and reports her last bowel movement was yesterday morning. - She reports a possible diagnosis of di verticulitis from a prior colonoscopy and has her gallbladder. - She underwent a hysterectomy at the of October for fibroids. - She attempted to relieve her symptoms by taking two tablespoons of olive oil during the night. Review of Systems - Constitutional: Reports chills. Denies fever. - Gastrointestinal: Reports sharp upper abdominal pain, bloating, and some burping. Denies nausea, vomiting, diarrhea, and reflux. Reports a history of constipation and has not had a bowel movement since yesterday morning. - Genitourinary: Reports urination is fi ne. Denies hematuria. - Musculoskeletal: Reports pain in the l eft shoulder blade. - Cardiovascular: Denies chest pain. Physical Exam General: Cooperative, healthy appearing, comfortable, no acute distress and well developed Orientation: Patient oriented x3 Respiratory: Normal respiratory effort and able to speak in complete sentences. Clear to auscultation bilaterally. No w/r/r noted. Cardiovascular: Regular rate and rhythm. Normal S1 and S2. No m/r/g noted. GI: Normal to inspection. Hypoactive BS noted in all 4 quadrants. Soft to palpation, non-distended. TTP of the LUQ and epigastric. Negative Rovsing noted. Negative Tom's noted. No guarding or rebound tenderness noted. Negative CVA tenderness noted. No hepatomegaly noted. No masses or hernias appreciated. Skin: No rashes or lesions noted [facility] Medical History Cough Tubular adenoma Dysuria Vitamin D deficiency Hyperlipidemia Normal pelvic exam Mammogram declined Annual physical exam Surgical History History of esophagogastroduodenoscopy (EGD) History of cone biopsy of uterine cervix Hx of tonsillectomy Hx of hernia repair Hx of colonoscopy Family History Sister IBS (irritable bowel syndrome) Mother Substance use disorder Father Mental health disorder Social History Household Members Other:: son Housing: House Alcohol intake: current Alcohol intake frequency: holidays/special occasions only Patient Tobacco Use Status: Former Tobacco user Tobacco use type: Cigarette e-Cigarette/Vaping Use: Never Used service: No Current occupational status: employed Current occupation: [employer] Sexual orientation: Straight/Heterosexual Gender identity: Female Cognitive needs: No Hearing needs: No Vision needs: Yes Review of Systems Const All systems reviewed & are unremarkable except as noted in HPI and below Physical Exam Vital Signs: Last Vital Signs Temp 97.4 F 03/03/25 10:55 Pulse 78 03/03/25 10:55 BP 138/66 03/03/25 10:55 Pulse Ox 96 03/03/25 10:55 Oxygen Delivery Method Room Air 03/03/25 10:55 BMI result Body Mass Index 36.3 Results Reviewed Results Reviewed: will review her xray in the office Assessment & Plan Assessment & Plan (1) LUQ abdominal pain: Code(s): R10.12 - Left upper quadrant pain Plan Most likely constipation vs reflux vs obstruction vs diverticulosis plan - The patient's symptoms are likely due to constipation, possibly exacerbated by recent intake of pomegranate seeds. - An abdominal X-ray was ordered to rule out a small bowel obstruction. - Recommended starting MiraLax and Senna for constipation. - Advised to increase fluid intake and adhere to a light diet, avoiding seeds and spicy foods. - The patient will be contacted with the results of the X-ray. - Advised to go to the ER if her pain is worse - follow up with PCP Orders: Orders XR acute abdomen series Today R10.12 - Left upper quadrant pain Coding Level of Care Code Est Pt Level 4 (48137) Diagnoses LUQ abdominal pain R10.12
[2025-03-03 10:55] VITALS: BP 138/66; PULSE 78; TEMP 36.3; O2SAT 96; BMI 36.3
== END 2025-03-03 11:51 | disposition home or self-care (01) ==
PROVIDERS: PCP Internal Medicine; Visit Provider Physician Assistant Medical
DX: R10.12 Left upper quadrant pain (principal)

== ENCOUNTER → 2025-03-03 12:02 | Outpatient (BNV) | payer OTHER, SELFPAY | PROVIDERS: PCP Internal Medicine; Visit Provider Radiology Diagnostic Radiology | DX: R10.12 Left upper quadrant pain (principal) | CPT/HCPCS: 74022 ==